=== PATIENT | female | born 1965 | race Caucasian/White ===

== ENCOUNTER 2018-02-27 14:54 | Inpatient (IN) | payer MEDICARE, MEDICAID ==
[2018-02-27 15:50] LABS: URINE SOURCE CLEAN C
[2018-02-27 15:58] LABS: % BASOPHILS 0.4 % (0.0-2.0); % EOSINOPHILS 3.4 % (0.0-5.0); % LYMPHOCYTES 34.2 % (20.0-50.0); EOSINOPHILE ABSOLUTE 0.2 Th/cmm (0.1-0.4); HEMATOCRIT 38.7 % (41.0-60); HEMOGLOBIN 13.3 gm/dL (12-16); LYMPHOCYTE ABSOLUTE 1.7 Th/cmm (1.5-3.0); MEAN CELL VOLUME 90.9 fl (81-100); MEAN CORPUSCULAR HEMOGLOBIN 31.2 pg (27.0-31.0); MEAN CORPUSCULAR HGB CONC 34.4 pg (28.0-36.0); MEAN PLATELET VOLUME 8.4 fl; MONOCYTE ABSOLUTE 0.4 Th/cmm (0.3-1.0); NEUTROPHILE ABSOLUTE 2.8 Th/cmm (1.8-8.0); PLATELET COUNT 116 Th/cmm (150-400); RED BLOOD COUNT 4.26 Mil/cmm (3.80-5.10); RED CELL DISTRIBUTION WIDTH 13.5 % (11.5-20.0); URINE BILIRUBIN NEGATIVE (NEGATIVE); URINE BLOOD TRACE (NEGATIVE); URINE GLUCOSE (UA) NEGATIVE (NEGATIVE); URINE KETONE NEGATIVE (NEGATIVE); URINE LEUKOCYTE ESTERASE NEGATIVE (NEGATIVE); URINE MICROSCOPIC INDICATED? YES; URINE NITRATE NEGATIVE (NEGATIVE); URINE PH 7.5 (4.6 - 8.0); URINE PROTEIN NEGATIVE (NEGATIVE); URINE UROBILINOGEN 0.2 E.U./dL (0.2 - 1.0); WHITE BLOOD COUNT 5.1 Th/cmm (4.8-10.8)
[2018-02-27 15:59] LABS: URINE CLARITY CLEAR (CLEAR); URINE COLOR YELLOW
[2018-02-27 16:06] LABS: URINE BACTERIA FEW /hpf (NONE SEEN); URINE EPITHELIAL CELLS MODERATE /lpf (FEW); URINE WBC 0-2 /hpf (0-5)
[2018-02-27 16:14] LABS: AMPHETAMINE URINE NEGATIVE (NEGATIVE); BARBITURATES URINE NEGATIVE (NEGATIVE); BENZODIAZEPINES QUAL URINE NEGATIVE (NEGATIVE); CANNABINOID THC NEGATIVE (NEGATIVE); COCAINE METABOLITE QUAL URINE NEGATIVE (NEGATIVE); METHADONE URINE NEGATIVE (NEGATIVE); METHAMPHETAMINES QUAL URINE NEGATIVE (NEGATIVE); OPIATES (MORPHINE) QUAL. URINE NEGATIVE (NEGATIVE); PHENCYCLIDINE (PCP) URINE NEGATIVE (NEGATIVE); TRICYCLICS (TCA) QUAL. URINE NEGATIVE (NEGATIVE)
[2018-02-27 16:16] LABS: ALB/GLOB RATIO 1.9 (1.0-1.8); ALBUMIN 3.8 gm/dL (3.7-5.3); ALKALINE PHOSPHATASE 37 U/L (34-104); ANION GAP 13.7 (7.0-16.0); BILIRUBIN,TOTAL 0.3 mg/dL (0.3-1.0); BUN - UREA NITROGEN 15 mg/dL (7-25); CALCIUM SERUM 8.9 mg/dL (8.6-10.3); CARBON DIOXIDE 26.8 mEq/L (21.0-31.0); CHLORIDE 102 mEq/L (98-107); CREATININE - SERUM 0.7 mg/dL (0.6-1.2); GFR AFRICAN-AMERICAN > 60.0 ml/min (>90); GFR NON AFRICAN-AMERICAN > 60.0 ml/min; GLUCOSE 106 mg/dL (70-105); MAGNESIUM 1.9 mg/dL (1.9-2.7); POTASSIUM SERUM 4.5 mEq/L (3.5-5.1); SGOT 24 U/L (13-39); SGPT/ALT 16 U/L (7-52); SODIUM SERUM 138 mEq/L (136-145); TOTAL PROTEIN,SERUM 5.8 gm/dL (6.0-8.3)
--- NOTE | 2018-02-27 17:25 | ED Physician Chart ---
ED Chief Complaint/HPI - Patient Information Date Seen:: 02/27/18 Time Seen:: 15:55 Chief Complaint:: dysuria, cp, L knee pain, lightheadedness History of Present Illness:: dysuria, cp, L knee pain, lightheadedness admits to dysuria wants to be checked if she is (still has her period and says that she is sexually active) had chest pain thsi a.m. left knee pain had lightheadedness Allergies:: Allergies Allergy/AdvReac Type Severity Reaction Status Date / Time No Known Allergies Allergy Verified 02/27/18 15:46 Vitals:: Vital Signs - 8 hr 02/27/18 15:55 Temp 98.7 F HR 86 RR 18 BP 103/59 O2 Sat % 95 Historian:: Patient, Medical Records Review:: Nurse's Note Reviewed, Transfer documents Reviewed ED Review of Systems - Review of Systems General/Constitutional: No fever, No chills, No weight loss, No weakness, No diaphoresis, No edema, No loss of appetite Skin: No skin lesions, No rash, No bruising Head: No headache, No light-headedness Eyes: No loss of vision, No pain, No diplopia ENT: No earache, No nasal drainage, No sore throat, No tinnitus Neck: No neck pain, No swelling, No thyromegaly, No stiffness, No mass noted Cardio Vascular: Chest pain Pulmonary: No SOB, No cough, No sputum, No wheezing GI: No nausea, No vomiting, No diarrhea, No pain, No melena, No hematochezia, No constipation, No hematemesis G/U: Dysuria Musculoskeletal: Bone or joint pain Endocrine: No polyuria, No polydipsia Psychiatric: No prior psych history, No depression, No anxiety, No suicidal ideation Hematopoietic: No bruising, No lymphadenopathy Allergic/Immuno: No urticaria, No angioedema Neurological: Other (lightheadedness) ED Past Medical History - Past Medical History Obtainable: Yes Past Medical History: HTN, Asthma/COPD Psychiatricy History: Depression, Bipolar Family Medical History - Family Member Mother History Unknown: Yes ED Physical Exam - Physical Examination General/Constitutional: Awake, Well-developed, well-nourished, Alert, No distress, GCS 15, Non-toxic appearing, Ambulatory Head: Atraumatic Eyes: Lids, conjuctiva normal, PERRL, EOMI Skin: Nl inspection, No rash, No skin lesions, No ecchymosis, Well hydrated, No lymphadenopathy ENMT: External ears, nose nl Neck: Nontender, Full ROM w/o pain, No nuchal rigidity, No stridor Respiratory: Nl effort/Exclusion, Clear to Auscultation, No Wheeze/Rhonchi/Rales Cardio Vascular: RRR, No murmur, gallop, rubs, NL S1 S2 GI: No tenderness/rebounding/guarding, No organomegaly, No hernia, Normal BS's, Nondistended, No mass/bruits, No McBurney tenderness : No CVA tenderness Extremities: Full ROM, normal strength in all extremities, No edema, Normal digits & nails Other Extremities comments:: Left knee pain to palpation, NV intact. Neuro/Psych: Alert/oriented, Normal sensory exam, Normal motor strength, Judgement/insight normal, Mood normal, Normal gait, No focal deficits Other Neuro/Psych comments:: marked tremor, especially of her hands. Misc: Normal back, No paraspinal tenderness ED Labs/Radiology/EKG Results - Lab Results Results: Laboratory Tests 02/27/18 02/27/18 02/27/18 15:32 15:32 15:32 WBC 5.1 RBC 4.26 Hgb 13.3 Hct 38.7 L MCV 90.9 MCH 31.2 H MCHC Differential 34.4 RDW 13.5 Plt Count 116 L MPV 8.4 Neutrophils % 54.0 Lymphocytes % 34.2 Monocytes % 8.0 Eosinophils % 3.4 Basophils % 0.4 Sodium 138 Potassium 4.5 Chloride 102 Carbon Dioxide 26.8 Anion Gap 13.7 BUN 15 Creatinine 0.7 Est GFR ( Amer) > 60.0 Est GFR (Non-Af Amer) > 60.0 BUN/Creatinine Ratio 21.4 Glucose 106 H Calcium 8.9 Phosphorus 3.0 Magnesium 1.9 Total Bilirubin 0.3 AST 24 ALT 16 Alkaline Phosphatase 37 Troponin I Total Protein 5.8 L Albumin 3.8 Globulin 2.0 Albumin/Globulin Ratio 1.9 H TSH Urine Source CLEAN C Urine Color YELLOW Urine Clarity CLEAR Urine pH 7.5 Ur Specific [place] 1.015 Urine Protein NEGATIVE Urine Glucose (UA) NEGATIVE Urine Ketones NEGATIVE Urine Blood TRACE Urine Nitrate NEGATIVE Urine Bilirubin NEGATIVE Urine Urobilinogen 0.2 Ur Leukocyte Esterase NEGATIVE Urine RBC 2-5 Urine WBC 0-2 Ur Epithelial Cells MODERATE Urine Bacteria FEW Urine Test POC Ur Test Urine Opiates Screen Urine Methadone Screen Ur Barbiturates Screen Valproic Acid Ur Tricyclics Screen Ur Phencyclidine Scrn Amphetamines Screen U Methamphetamines Scrn U Benzodiazepines Scrn U Cocaine Metab Screen U Cannabinoids Screen 02/27/18 02/27/18 02/27/18 15:32 15:32 15:32 WBC RBC Hgb Hct MCV MCH MCHC Differential RDW Plt Count MPV Neutrophils % Lymphocytes % Monocytes % Eosinophils % Basophils % Sodium Potassium Chloride Carbon Dioxide Anion Gap BUN Creatinine Est GFR ( Amer) Est GFR (Non-Af Amer) BUN/Creatinine Ratio Glucose Calcium Phosphorus Magnesium Total Bilirubin AST ALT Alkaline Phosphatase Troponin I 0.01 Total Protein Albumin Globulin Albumin/Globulin Ratio TSH 5.42 Urine Source Urine Color Urine Clarity Urine pH Ur Specific [place] Urine Protein Urine Glucose (UA) Urine Ketones Urine Blood Urine Nitrate Urine Bilirubin Urine Urobilinogen Ur Leukocyte Esterase Urine RBC Urine WBC Ur Epithelial Cells Urine Bacteria Urine Test NEGATIVE POC Ur Test Urine Opiates Screen Urine Methadone Screen Ur Barbiturates Screen Valproic Acid Ur Tricyclics Screen Ur Phencyclidine Scrn Amphetamines Screen U Methamphetamines Scrn U Benzodiazepines Scrn U Cocaine Metab Screen U Cannabinoids Screen 02/27/18 02/27/18 02/27/18 15:32 15:32 15:41 WBC RBC Hgb Hct MCV MCH MCHC Differential RDW Plt Count MPV Neutrophils % Lymphocytes % Monocytes % Eosinophils % Basophils % Sodium Potassium Chloride Carbon Dioxide Anion Gap BUN Creatinine Est GFR ( Amer) Est GFR (Non-Af Amer) BUN/Creatinine Ratio Glucose Calcium Phosphorus Magnesium Total Bilirubin AST ALT Alkaline Phosphatase Troponin I Total Protein Albumin Globulin Albumin/Globulin Ratio TSH Urine Source Urine Color Urine Clarity Urine pH Ur Specific [place] Urine Protein Urine Glucose (UA) Urine Ketones Urine Blood Urine Nitrate Urine Bilirubin Urine Urobilinogen Ur Leukocyte Esterase Urine RBC Urine WBC Ur Epithelial Cells Urine Bacteria Urine Test POC Ur Test Negative Urine Opiates Screen NEGATIVE Urine Methadone Screen NEGATIVE Ur Barbiturates Screen NEGATIVE Valproic Acid 96.0 Ur Tricyclics Screen NEGATIVE Ur Phencyclidine Scrn NEGATIVE Amphetamines Screen NEGATIVE U Methamphetamines Scrn NEGATIVE U Benzodiazepines Scrn NEGATIVE U Cocaine Metab Screen NEGATIVE U Cannabinoids Screen NEGATIVE ED Assessment - Assessment General Assessment: EKG FROM 15:43:09 P.M. reveals normal sinus rhythm with a flipped t wave in III. CT scan read as negative. Movement artifact present. Spoke with Dr. Simeon who will admit patient for IV hydration. Patient's orthostatics reveal an 18 point decreased in blood pressure from lying to sitting. This dehydration may have been a cause her her lightheadedness this morning. ED Septic Shock - . Is Septic Shock (SBP<90, OR Lactate>4 mmol\L) present?: No - <6hrs of presentation: Vital Signs: Vital Signs - 8 hr 02/27/ 15:55 Temp 98.7 F HR 86 RR 18 BP 103/59 O2 Sat % 95 ED Reassessment (Disposition) - Reassessment Reassessment Condition:: Unchanged - Diagnosis Diagnosis:: Dehydration Orthostasis with an 18 point systolic blood pressure drop Lightheadedness this morning Chest pain this morning Left knee pain Dysuria - Patient Disposition Discharge/Transfer:: Acute Care w/in this hosp Admitted to:: Telemetry Condition at Disposition:: Stable, Unchanged
[2018-02-27] MEDS ORDERED: Lactated Ringer 1,000 ML IV ONE (18:00)
[2018-02-27 23:03] VITALS: BP 144/85
[2018-02-28] MEDS: D5-0.45NS 1,000 ML IV SCH ×3 (01:27→13:03)
[2018-02-28 05:39] LABS: % BASOPHILS 0.3 % (0.0-2.0); % LYMPHOCYTES 40.5 % (20.0-50.0); % NEUTROPHILS 45.2 % (40.0-80.0); EOSINOPHILE ABSOLUTE 0.2 Th/cmm (0.1-0.4); HEMATOCRIT 36.1 % (41.0-60); HEMOGLOBIN 12.5 gm/dL (12-16); LYMPHOCYTE ABSOLUTE 1.7 Th/cmm (1.5-3.0); MEAN CELL VOLUME 90.1 fl (81-100); MEAN CORPUSCULAR HEMOGLOBIN 31.3 pg (27.0-31.0); MEAN CORPUSCULAR HGB CONC 34.8 pg (28.0-36.0); MEAN PLATELET VOLUME 7.9 fl; MONOCYTE ABSOLUTE 0.4 Th/cmm (0.3-1.0); NEUTROPHILE ABSOLUTE 1.8 Th/cmm (1.8-8.0); PLATELET COUNT 102 Th/cmm (150-400); RED CELL DISTRIBUTION WIDTH 13.8 % (11.5-20.0); WHITE BLOOD COUNT 4.1 Th/cmm (4.8-10.8)
[2018-02-28 05:52] LABS: ALB/GLOB RATIO 1.8 (1.0-1.8); ALBUMIN 3.3 gm/dL (3.7-5.3); ALKALINE PHOSPHATASE 50 U/L (34-104); ANION GAP 10.5 (7.0-16.0); BILIRUBIN,TOTAL 0.2 mg/dL (0.3-1.0); BUN - UREA NITROGEN 16 mg/dL (7-25); CALCIUM SERUM 8.7 mg/dL (8.6-10.3); CARBON DIOXIDE 28.4 mEq/L (21.0-31.0); CHLORIDE 105 mEq/L (98-107); CREATININE - SERUM 0.7 mg/dL (0.6-1.2); GFR AFRICAN-AMERICAN > 60.0 ml/min (>90); GFR NON AFRICAN-AMERICAN > 60.0 ml/min; GLUCOSE 141 mg/dL (70-105); POTASSIUM SERUM 3.9 mEq/L (3.5-5.1); SGOT 15 U/L (13-39); SGPT/ALT 18 U/L (7-52); SODIUM SERUM 140 mEq/L (136-145); TOTAL PROTEIN,SERUM 5.1 gm/dL (6.0-8.3)
[2018-02-28] MEDS ORDERED: Ipratropium Neb 0.5 mg/2.5 mL UD HHN PRN (06:59)
[2018-02-28] MEDS ORDERED: Albuterol Nebulizer 2.5mg/3mL HHN PRN (06:59)
--- NOTE | 2018-02-28 08:53 | Diagnostic Imaging Report ---
CHEST X-RAY: AP view INDICATION: Rhonchi COMPARISON: None FINDINGS: There is no focal consolidation or pleural effusions The heart is normal in size. There is rightward convexity of the thoracic spine. Degenerative changes of the right shoulder are noted. IMPRESSION: No focal airspace consolidation identified.
--- NOTE | 2018-02-28 09:02 | Diagnostic Imaging Report ---
Left knee 3 views Indication: Trauma Comparison: none Findings: Mild degenerative changes are noted with mild narrowing of the medial knee compartment. No evidence of acute fracture. Trace joint effusion is noted. No focal soft tissue swelling. Impression: No evidence of an acute fracture. Mild degenerative changes and trace joint effusion. In the setting of trauma, if clinical symptoms persist and there is continued concern for an occult fracture, follow up exams in 5-7 days is suggested.
[2018-02-28] MEDS: Benztropine 1 MG TAB PO SCH ×2 (09:11→16:46)
--- NOTE | 2018-02-28 09:27 | Diagnostic Imaging Report ---
Head CT without intravenous contrast Indication: Lightheadedness Comparison: None Technique: Axial images were obtained from the vertex to the skull base without IV contrast. Coronal reconstructions were made. Total DLP: 691, [id number] FINDINGS: Images of the brain obtained without contrast demonstrate no acute hemorrhage. No mass lesions identified. The ventricles and basal cisterns are patent. The marcos-white matter differentiation is preserved. There is no mass effect or midline shift. No skull fractures identified. No soft tissue swelling. The paranasal sinuses are clear. There is focal osseous prominence of the right inner calvarium measuring 8 mm. IMPRESSION: No acute intracranial abnormality.
[2018-02-28 14:40] LABS: CHOLESTEROL 157 mg/dL (<200); HDL -HIGH DENSITY LIPOPROTEIN 37 mg/dL (23-92); TRIGLYCERIDES 244 mg/dL (<150)
--- NOTE | 2018-02-28 14:45 | History & Physical ---
ADMIT DATE: 02/28/2018 CHIEF COMPLAINT: Dysuria and lightheadedness. HISTORY OF PRESENT ILLNESS: This is a 52-year-old female who is a [facility] resident who has a 1-day history of dysuria as well as lightheadedness. According to the patient yesterday, she started to feel lightheaded and she was having painful urination. She denied any hematuria. She denied any fevers as well. The patient states that she was really dizzy yesterday and she felt like she was about to faint. For this reason, she was brought here to [facility]. PAST MEDICAL HISTORY: Hypertension, asthma, COPD, Parkinson's, depression, and bipolar. PAST SURGICAL HISTORY: Unknown. ALLERGIES: No known allergies. FAMILY HISTORY: Noncontributory. SOCIAL HISTORY: The patient is a smoker and lives in a [facility]. REVIEW OF SYSTEMS: GENERAL: The patient complains of weakness. CARDIOVASCULAR: Denies chest pain. RESPIRATORY: Denies shortness of breath. GASTROINTESTINAL: Denies nausea, vomiting, abdominal pain. GENITOURINARY: Complains of dysuria. All other systems are reviewed and are negative. PHYSICAL EXAMINATION: GENERAL: Obese female, awake, alert, in no apparent distress. VITAL SIGNS: Temperature 97.9, height 67, blood pressure 124/65, respirations 18, O2 95%. HEENT: Head; normocephalic, atraumatic. NECK: Supple. No mass. LUNGS: Clear bilaterally. HEART: Regular rhythm. ABDOMEN: Soft, nontender. LABORATORY DATA: WBC 4.1, H and H 12.5 and 36.1, platelet of 102. Sodium 140, potassium 3.9, chloride 105, BUN 16, creatinine 0.7. DIAGNOSTIC DATA: The patient had a CT of the head done, impression is no acute intracranial abnormality. The patient also had an x-ray of the knee, no evidence of acute fracture. The patient also had a chest x-ray done. Impression is no focal airspace consolidation identified. ASSESSMENT: Dysuria, possible urinary tract infection, acute dehydration, near syncope, Parkinson's, nicotine abuse, chronic obstructive pulmonary disease, hypertension, depression, bipolar. PLAN: We will get a Neurology consultation as well as Cardiology. We will also get a carotid ultrasound done. We will check for IV fluids for hydration. We will continue to follow this patient. [facility]# [id number]
[2018-02-28] MEDS ORDERED: Divalproex DR 500 MG, Divalproex DR 250 MG PO ONE (17:00)
--- NOTE | 2018-02-28 19:17 | Consultation ---
DATE OF CONSULTATION: 02/28/2018 PSYCHIATRIC CONSULTATION PHYSICIAN REQUESTING CONSULTATION: Dr. Simeon. REASON FOR CONSULTATION: History of bipolar disorder. HISTORY OF PRESENT ILLNESS: This patient is a 52-year-old woman, resident of [facility]. Information obtained by directly interviewing the patient as well as reviewing the admission papers. The patient is reported to have been diagnosed to have bipolar disorder since age 22 and has been on several different medications. At the time of the evaluation, the patient has been vigorously shaking her hands and is stating that it might have been one of the side effects. The patient is also wondering whether it is Parkinson disease. The patient is scheduled to have a neurological evaluation. The patient is stating that she is not able to sleep and because of the medication, she has gained lot of weight. Review of the chart indicated that the patient has been on Depakote 750 mg twice a day and Cogentin 2 mg twice a day. Even with all the medications, the patient is complaining that she has been having a lot of dry mouth and blurred vision and the patient is stating that she could not deal with this any longer. Sleep is noted to be poor. Appetite is noted to be fair. The patient has auditory hallucinations. No delusions are noted. The patient's speech is noted to be slightly pressured. The patient is noted to be paranoid. The patient is not presenting with any threats to harm self or others, but the patient is stating that she has been having difficult time in dealing with the tremor at this time. ASSESSMENT: The patient is having acute mood swings. DIAGNOSIS AT THE TIME OF THE DICTATION: Bipolar disorder, mixed. PLAN: To continue the patient with supportive therapy. Encouraged the patient to verbalize the concerns. The patient's Depakote is going to be decreased to 500 mg twice a day, Klonopin 0.5 mg is going to be added to decrease the anxiety. The patient is going to be placed on 5 mg of the Ambien to help her with the insomnia. The patient is going to be followed up with supportive therapy. Plan is to continue the Depakote and followup. Thank you Dr. Simeon for allowing me to participate in the care of the patient. JOB# [id number]
[2018-02-28] MEDS ORDERED: Non-Formulary Item 1 EA (Melatonin [Melatonin] 5 MG) PO SCH (21:00)
[2018-02-28] MEDS: Budesonide 0.5 Mg/2 mL Ud HHN SCH (22:42)
--- NOTE | 2018-03-01 01:34 | Consultation ---
DATE OF CONSULTATION: 02/28/2018 HISTORY AND PHYSICAL CHIEF COMPLAINT: Dysuria, chest pain, left knee pain, lightheadedness, and dizziness. HISTORY OF PRESENT ILLNESS: The patient is a 52-year-old female with a past medical history of hypertension, asthma, COPD, depression, and bipolar disorder, presented to the ER for dysuria with some chest pain and left knee pain. The patient complained of lightheadedness, which has resolved now. On initial evaluation, her temperature is 98.7 degrees Fahrenheit, pulse 86, respiration 18, and blood pressure 103/59. Lab work showed WBC of 5100, hemoglobin 13.3, platelets 116,000 and creatinine 0.7. Urinalysis, clear urine with negative nitrite, negative bilirubin, negative leukoesterase, wbc's 0-2, and few bacteria. Orthostatic vitals were taken and this showed orthostatic hypertension. The patient was thought to have dehydration, so the patient was started on IV fluid at 125 mL per hour and admitted to the med/surg unit. CT scan of the head was performed, which shows no acute abnormality. X-ray of the left knee was also performed, which showed DJD with a trace joint effusion. Chest x-ray showed no active disease. PAST MEDICAL HISTORY: Hypertension, asthma, COPD, depression, and bipolar disorder. ALLERGIES: NKDA. MEDICATIONS: As per medication reconciliation sheet. Medications include Tylenol 650 mg p.o. q. 6 hourly p.r.n., albuterol and Atrovent nebulizers, Cogentin 2 mg p.o. b.i.d., Pulmicort 0.5 mg ____ b.i.d., Sinemet 25/100 mg 1 tab p.o. b.i.d., carbidopa and levodopa 1 tab p.o., Depakote 750 mg p.o. b.i.d., Colace 100 mg p.o. b.i.d., and melatonin 5 mg p.o. daily at nighttime. SOCIAL HISTORY: The patient lives at ____. No history of smoking, alcohol, or drug use. REVIEW OF SYSTEMS: GENERAL: The patient denies any fever or chills. HEENT: The patient denies any diplopia, photophobia, or sore throat. RESPIRATORY: Denies any cough or shortness of breath. CARDIOVASCULAR: The patient denies any chest pain or palpitation. GASTROINTESTINAL: The patient denies any nausea, vomiting, diarrhea, or constipation. GENITOURINARY: The patient had no hematuria. The patient complained of dysuria which has resolved. MUSCULOSKELETAL: The patient complains of left knee pain. CENTRAL NERVOUS SYSTEM: The patient has no headache. The patient had dizziness, which is resolved. The patient had no focal weakness. No seizures. PHYSICAL EXAMINATION: VITAL SIGNS: Current vial sign shows temperature is 97.9 degrees Fahrenheit, pulse 84, respiration is 18, blood pressure 124/64, and oxygen saturation is 95%. GENERAL: The patient is comfortable lying in the bed in acute distress. HEENT: Head is normocephalic, atraumatic. Oral cavity moist, pink tongue. Eyes: No pallor, no icterus. Pupils PERRLA, EOMI. NECK: Supple, no JVD, no bruit. Trachea midline. CHEST: Bilateral breath sounds. No crackles, no wheezing. CARDIOVASCULAR: S1 and S2 within normal limits. Regular rhythm. No murmur, no gallop. ABDOMEN: Soft, nontender, nondistended. Bowel sounds present. EXTREMITIES: No cyanosis, no clubbing, no edema. NEUROLOGIC: Alert, awake, and oriented x 3. No focal deficit. LABORATORY DATA: Current lab shows WBC count is ____, hemoglobin 12.5, hematocrit 36.1, platelets are 102,000, neutrophil is 45.2%. Sodium 140, potassium 3.9, chloride 105, bicarbonate is 28.4, BUN 16, creatinine 0.7, and glucose is 141. IMPRESSION: 1. Dizziness with orthostatic hypotension likely dehydration. 2. Thrombocytopenia. 3. Hypertension. 4. Asthma, chronic obstructive pulmonary disease. 5. Depression. 6. Bipolar disorder. RECOMMENDATIONS: I will decrease IV fluid to 60 mL per hour. Check orthostatic vital signs. Echocardiogram. Consult Dr. Beau Saenz, Dr. Garcia, and Dr. Torres. We will consider discharge planning in the next 2-3 days to SNF, if cleared by consultants. JOB# [id number]
[2018-03-01] MEDS: D5-0.45NS 1,000 ML IV SCH (02:19)
[2018-03-01] MEDS: Budesonide 0.5 Mg/2 mL Ud HHN SCH ×2 (07:44→18:38)
--- NOTE | 2018-03-01 08:38 | Diagnostic Imaging Report ---
Carotid ultrasound HISTORY: Syncope COMPARISON: None Technique: Longitudinal and transverse sonographic sector images of the carotid arteries were obtained with doppler analysis. FINDINGS: Exam is limited due to patient's medical condition. Exam of the right side demonstrates mild generalized atherosclerotic vascular disease. The velocity and velocity ratios are within normal limits. Antegrade vertebral artery flow is demonstrated. Exam of the left side demonstrates mild generalized atherosclerotic vascular disease. The velocity and velocity ratios are within normal limits. The left vertebral artery was not visualized as patient had difficulty cooperating for the exam. IMPRESSION: Mild generalized atherosclerotic vascular disease. No evidence of hemodynamically significant stenosis. The left vertebral artery was not visualized as patient had difficulty cooperating for the exam.
[2018-03-01] MEDS: Benztropine 1 MG TAB PO SCH ×2 (09:02→17:32)
--- NOTE | 2018-03-01 12:26 | Infectious Disease Prog Note ---
Infectious Disease Subjective - Review of Systems Service Date: 03/01/18 Subjective: Doing well, no fever. no chest pain, no dizziness. Infectious Disease Objective - Results Result Diagrams: 02/28/18 04:45 02/28/18 04:45 Recent Labs: Laboratory Last Values WBC 4.1 Th/cmm (4.8-10.8) L 02/28/18 04:45 RBC 4.00 Mil/cmm (3.80-5.10) 02/28/18 04:45 Hgb 12.5 gm/dL (12-16) 02/28/18 04:45 Hct 36.1 % (41.0-60) L 02/28/18 04:45 MCV 90.1 fl (81-100) 02/28/18 04:45 MCH 31.3 pg (27.0-31.0) H 02/28/18 04:45 MCHC Differential 34.8 pg (28.0-36.0) 02/28/18 04:45 RDW 13.8 % (11.5-20.0) 02/28/18 04:45 Plt Count 102 Th/cmm (150-400) L 02/28/18 04:45 MPV 7.9 fl 02/28/18 04:45 Neutrophils % 45.2 % (40.0-80.0) 02/28/18 04:45 Lymphocytes % 40.5 % (20.0-50.0) 02/28/18 04:45 Monocytes % 9.0 % (2.0-10.0) 02/28/18 04:45 Eosinophils % 5.0 % (0.0-5.0) 02/28/18 04:45 Basophils % 0.3 % (0.0-2.0) 02/28/18 04:45 Sodium 140 mEq/L (136-145) 02/28/18 04:45 Potassium 3.9 mEq/L (3.5-5.1) 02/28/18 04:45 Chloride 105 mEq/L (98-107) 02/28/18 04:45 Carbon Dioxide 28.4 mEq/L (21.0-31.0) 02/28/18 04:45 Anion Gap 10.5 (7.0-16.0) 02/28/18 04:45 BUN 16 mg/dL (7-25) 02/28/18 04:45 Creatinine 0.7 mg/dL (0.6-1.2) 02/28/18 04:45 Est GFR ( Amer) > 60.0 ml/min (>90) 02/28/18 04:45 Est GFR (Non-Af Amer) > 60.0 ml/min 02/28/18 04:45 BUN/Creatinine Ratio 22.9 02/28/18 04:45 Glucose 141 mg/dL (70-105) H 02/28/18 04:45 POC Glucose 123 MG/DL (70 - 105) H 02/27/18 22:39 Calcium 8.7 mg/dL (8.6-10.3) 02/28/18 04:45 Phosphorus 3.0 mg/dL (2.5-5.0) 02/27/18 15:32 Magnesium 1.9 mg/dL (1.9-2.7) 02/27/18 15:32 Total Bilirubin 0.2 mg/dL (0.3-1.0) L 02/28/18 04:45 AST 15 U/L (13-39) 02/28/18 04:45 ALT 18 U/L (7-52) 02/28/18 04:45 Alkaline Phosphatase 50 U/L (34-104) 02/28/18 04:45 Troponin I 0.01 ng/mL (0.01-0.05) 02/27/18 15:32 Total Protein 5.1 gm/dL (6.0-8.3) L 02/28/18 04:45 Albumin 3.3 gm/dL (3.7-5.3) L 02/28/18 04:45 Globulin 1.8 gm/dL 02/28/18 04:45 Albumin/Globulin Ratio 1.8 (1.0-1.8) 02/28/18 04:45 Triglycerides 244 mg/dL (<150) H 02/28/18 04:45 Cholesterol 157 mg/dL (<200) 02/28/18 04:45 LDL Cholesterol Direct 101 mg/dL (75-193) 02/28/18 04:45 HDL Cholesterol 37 mg/dL (23-92) 02/28/18 04:45 TSH 5.42 uIU/ml (0.34-5.60) 02/27/18 15:32 Urine Source CLEAN C 02/27/18 15:32 Urine Color YELLOW 02/27/18 15:32 Urine Clarity CLEAR (CLEAR) 02/27/18 15:32 Urine pH 7.5 (4.6 - 8.0) 02/27/18 15:32 Ur Specific [place] 1.015 (1.005-1.030) 02/27/18 15:32 Urine Protein NEGATIVE mg/dL (NEGATIVE) 02/27/18 15:32 Urine Glucose (UA) NEGATIVE mg/dL (NEGATIVE) 02/27/18 15:32 Urine Ketones NEGATIVE mg/dL (NEGATIVE) 02/27/18 15:32 Urine Blood TRACE (NEGATIVE) 02/27/18 15:32 Urine Nitrate NEGATIVE (NEGATIVE) 02/27/18 15:32 Urine Bilirubin NEGATIVE (NEGATIVE) 02/27/18 15:32 Urine Urobilinogen 0.2 E.U./dL (0.2 - 1.0) 02/27/18 15:32 Ur Leukocyte Esterase NEGATIVE (NEGATIVE) 02/27/18 15:32 Urine RBC 2-5 /hpf (0-5) 02/27/18 15:32 Urine WBC 0-2 /hpf (0-5) 02/27/18 15:32 Ur Epithelial Cells MODERATE /lpf (FEW) 02/27/18 15:32 Urine Bacteria FEW /hpf (NONE SEEN) 02/27/18 15:32 Urine Test NEGATIVE 02/27/18 15:32 POC Ur Test Negative 02/27/18 15:41 Urine Opiates Screen NEGATIVE (NEGATIVE) 02/27/18 15:32 Urine Methadone Screen NEGATIVE (NEGATIVE) 02/27/18 15:32 Ur Barbiturates Screen NEGATIVE (NEGATIVE) 02/27/18 15:32 Valproic Acid 96.0 ug/mL (50.0-100.0) 02/27/18 15:32 Ur Tricyclics Screen NEGATIVE (NEGATIVE) 02/27/18 15:32 Ur Phencyclidine Scrn NEGATIVE (NEGATIVE) 02/27/18 15:32 Amphetamines Screen NEGATIVE (NEGATIVE) 02/27/18 15:32 U Methamphetamines Scrn NEGATIVE (NEGATIVE) 02/27/18 15:32 U Benzodiazepines Scrn NEGATIVE (NEGATIVE) 02/27/18 15:32 U Cocaine Metab Screen NEGATIVE (NEGATIVE) 02/27/18 15:32 U Cannabinoids Screen NEGATIVE (NEGATIVE) 02/27/18 15:32 - Physical Exam Vitals and I&O: Vital Signs Temp 98.1 F 03/01/18 11:00 Pulse 79 03/01/18 11:00 Resp 18 03/01/18 11:00 BP 113/55 03/01/18 11:00 Pulse Ox 98 03/01/18 11:00 Intake & Output 02/28/18 03/01/18 03/01/18 18:59 06:59 18:59 Intake Total 7141.766 1798 Balance 0625.647 1633 Weight (lbs) 87.543 kg 100.244 kg Intake: Intake, IV Amount 034.206 3399 D5-0.45NS 1,000 ml @ 125 979.167 mls/hr IV .Q8H [facility] Rx#: [id number] D5-0.45NS 1,000 ml @ 60 1000 mls/hr IV .[id number] [facility] Rx #:[id number] Oral 800 500 Other: # Voids 9 4 # Bowel Movements 0 Stool Characteristics Formed Formed Formed Weight Source Bedscale Bedsuc health Active Medications: Current Medications Acetaminophen (Tylenol) 650 mg PO Q6H PRN PRN Reason: Pain (Moderate) Stop: 04/29/18 01:08 Last Admin: 03/01/18 11:52 Dose: 650 mg Albuterol Sulfate (Albuterol 2.5mg/3ml Neb Ud) 2.5 mg HHN Q4H PRN PRN Reason: Shortness of Breath or Wheeze Stop: 04/29/18 06:58 Benztropine Mesylate (Cogentin) 1 mg PO BID [facility] Stop: 04/30/18 08:59 Last Admin: 03/01/18 09:02 Dose: 1 mg Budesonide (Pulmicort) 0.5 mg HHN BIDRT [facility] Stop: 04/29/18 18:59 Last Admin: 03/01/18 07:44 Dose: 0.5 mg Carbidopa/Levodopa (Sinemet 25mg-100 Mg) 1 tab PO BID [facility] Stop: 04/29/18 08:59 Last Admin: 03/01/18 09:02 Dose: 1 tab Divalproex Sodium (Depakote Dr) 500 mg PO BID [facility]; Protocol Stop: 04/30/18 08:59 Last Admin: 03/01/18 09:03 Dose: 500 mg Docusate Sodium (Colace) 100 mg PO BID [facility] Stop: 04/29/18 08:59 Last Admin: 03/01/18 09:02 Dose: 100 mg Dextrose/Sodium Chloride (D5-0.45ns) 1,000 mls @ 60 mls/hr IV .[id number] [facility] Stop: 04/29/18 12:14 Last Admin: 03/01/18 02:19 Dose: 60 mls/hr Ipratropium [place] (Atrovent Neb 0.5mg/2.5ml) 0.5 mg HHN QID PRN PRN Reason: Shortness of Breath or Wheeze Propranolol HCl (Inderal) 10 mg PO BID [facility] Stop: 04/30/18 16:59 Simvastatin (Zocor) 20 mg PO HS [facility]; Protocol Stop: 04/29/18 20:59 Last Admin: 02/28/18 21:06 Dose: 20 mg Zolpidem Tartrate (Ambien) 5 mg PO HS PRN PRN Reason: Insomnia Stop: 04/29/18 18:54 General: no acute distress, well developed, well nourished HEENT: atraumatic, normocephalic, PERRLA Neck: supple, no thyromegaly, no lymphadenopathy Cardiovascular: S1S2, regular Lungs: no clear to auscultation bilaterally, no clear to percussion Abdomen: soft, bowel sounds, no tender, no distended, no mass Extremities: no cyanosis, no clubbing, no edema Neurological: awake, alert, oriented Skin: intact Infectious Disease Assmt/Plan - Assessment Assessment: 1. Dizziness resolved. 2. Bipolar disorder. 3. Asthma copd. 4. HTN. 5. Thrombocytopenia. - Plan Plan: DC plan. Nutritional Asmnt/Malnutr-PDOC - Dietary Evaluation Malnutrition Findings (Please click <Entered> for more info): Nutritional Asmnt/Malnutrition Start: 02/28/18 16: 08 Text: Status: Complete Freq: Protocol: Document 02/28/18 16:08 TAMMY (Rec: 02/28/18 16:17 TAMMY [email or web address]) Nutritional Asmnt/Malnutrition Patient General Information Nutritional Screening High Risk Diagnosis near syncope, dehydration Pertinent Medical Hx/Surgical Hx HTN, asthma, COPD, Parkinson's , depression, bipolar Subjective Information Pt finished 100% of lunch at time of visit. Pt requested for hot cocoa, diet coke, and full salads. Pt states her appetite's good and enjoys her meals. Pt states she recently lost 10# by limiting her carbohydrate intake and meals. Observed pt to be shaking her body/hands during nutrition assessment. Current Diet Order/ Nutrition Support regular Pertinent Medications D5-0.45ns, colace, zocor Pertinent Labs 02/28: glucose 141, Alb 3.3, triglycerides 244 02/27: glucose 106, Alb 3.8, POC 123 Nutritional Hx/Data Height 1.55 m Height (Calculated Centimeters) 154.9 Current Weight (lbs) 87.543 kg Weight (Calculated Kilograms) 87.5 Weight (Calculated Grams) 42852.3 [place] Body Weight 105 lb Body Mass Index (BMI) 36.4 Weight Status Obese GI Symptoms GI Symptoms None Last BM none noted Difficult in: None Usual diet at home Pt states she has been limiting her meals and carbohydrate intake Skin Integrity/Comment: anupama, mike 20 Estimated Nutritional Goals BEE in Kcals: Adj wt of IBW Calories/Kcals/Kg 25-30 (based on adj wt 57.7 kg ) Kcals Calculated 7690-5330 Protein: Adj wt of IBW Protein g/k.8-1 Protein Calculated 46-58 g Fluid: ml 6118-7801 (1 ml/kcal) Nutritional Problem 1. Problem Problem Altered nutrition related lab value Etiology hyperglycemia Signs/Symptoms: glucose 141 Malnutrition Alert Is there a minimum of two criteria No selected? Query Text:Check all the applicable criteria. A minimum of two criteria are recommended for diagnosis of either severe or non-severe malnutrition. Malnutrition Related to Morbid Obesity Malnutrition related to morbid obesity No Intervention/Recommendation Comments 1. Continue with regular diet as ordered 2. Consider starting CCHO diet if blood glucose continues to stay above normal limits 3. Monitor PO intake, wt, labs and skin integrity 4. F/U as moderate risk in 3-5 days, 03/03-03/05 Expected Outcomes/Goals Expected Outcomes/Goals 1. PO intake to meet at least 75% of all meals 2. Wt stability, skin to remain intact, nutrition related labs to approach normal limits reviewed by Guera Rebolledo RD
--- NOTE | 2018-03-01 12:49 | Infectious Disease Prog Note ---
Infectious Disease Subjective - Review of Systems Service Date: 03/01/18 Subjective: Doing well, no fever. no chest pain, c/o dizziness on and off. Hypotensive, with SBP dropping to 80s. Infectious Disease Objective - Results Result Diagrams: 02/28/18 04:45 02/28/18 04:45 Recent Labs: Laboratory Last Values WBC 4.1 Th/cmm (4.8-10.8) L 02/28/18 04:45 RBC 4.00 Mil/cmm (3.80-5.10) 02/28/18 04:45 Hgb 12.5 gm/dL (12-16) 02/28/18 04:45 Hct 36.1 % (41.0-60) L 02/28/18 04:45 MCV 90.1 fl (81-100) 02/28/18 04:45 MCH 31.3 pg (27.0-31.0) H 02/28/18 04:45 MCHC Differential 34.8 pg (28.0-36.0) 02/28/18 04:45 RDW 13.8 % (11.5-20.0) 02/28/18 04:45 Plt Count 102 Th/cmm (150-400) L 02/28/18 04:45 MPV 7.9 fl 02/28/18 04:45 Neutrophils % 45.2 % (40.0-80.0) 02/28/18 04:45 Lymphocytes % 40.5 % (20.0-50.0) 02/28/18 04:45 Monocytes % 9.0 % (2.0-10.0) 02/28/18 04:45 Eosinophils % 5.0 % (0.0-5.0) 02/28/18 04:45 Basophils % 0.3 % (0.0-2.0) 02/28/18 04:45 Sodium 140 mEq/L (136-145) 02/28/18 04:45 Potassium 3.9 mEq/L (3.5-5.1) 02/28/18 04:45 Chloride 105 mEq/L (98-107) 02/28/18 04:45 Carbon Dioxide 28.4 mEq/L (21.0-31.0) 02/28/18 04:45 Anion Gap 10.5 (7.0-16.0) 02/28/18 04:45 BUN 16 mg/dL (7-25) 02/28/18 04:45 Creatinine 0.7 mg/dL (0.6-1.2) 02/28/18 04:45 Est GFR ( Amer) > 60.0 ml/min (>90) 02/28/18 04:45 Est GFR (Non-Af Amer) > 60.0 ml/min 02/28/18 04:45 BUN/Creatinine Ratio 22.9 02/28/18 04:45 Glucose 141 mg/dL (70-105) H 02/28/18 04:45 POC Glucose 123 MG/DL (70 - 105) H 02/27/18 22:39 Calcium 8.7 mg/dL (8.6-10.3) 02/28/18 04:45 Phosphorus 3.0 mg/dL (2.5-5.0) 02/27/18 15:32 Magnesium 1.9 mg/dL (1.9-2.7) 02/27/18 15:32 Total Bilirubin 0.2 mg/dL (0.3-1.0) L 02/28/18 04:45 AST 15 U/L (13-39) 02/28/18 04:45 ALT 18 U/L (7-52) 02/28/18 04:45 Alkaline Phosphatase 50 U/L (34-104) 02/28/18 04:45 Troponin I 0.01 ng/mL (0.01-0.05) 02/27/18 15:32 Total Protein 5.1 gm/dL (6.0-8.3) L 02/28/18 04:45 Albumin 3.3 gm/dL (3.7-5.3) L 02/28/18 04:45 Globulin 1.8 gm/dL 02/28/18 04:45 Albumin/Globulin Ratio 1.8 (1.0-1.8) 02/28/18 04:45 Triglycerides 244 mg/dL (<150) H 02/28/18 04:45 Cholesterol 157 mg/dL (<200) 02/28/18 04:45 LDL Cholesterol Direct 101 mg/dL (75-193) 02/28/18 04:45 HDL Cholesterol 37 mg/dL (23-92) 02/28/18 04:45 TSH 5.42 uIU/ml (0.34-5.60) 02/27/18 15:32 Urine Source CLEAN C 02/27/18 15:32 Urine Color YELLOW 02/27/18 15:32 Urine Clarity CLEAR (CLEAR) 02/27/18 15:32 Urine pH 7.5 (4.6 - 8.0) 02/27/18 15:32 Ur Specific [place] 1.015 (1.005-1.030) 02/27/18 15:32 Urine Protein NEGATIVE mg/dL (NEGATIVE) 02/27/18 15:32 Urine Glucose (UA) NEGATIVE mg/dL (NEGATIVE) 02/27/18 15:32 Urine Ketones NEGATIVE mg/dL (NEGATIVE) 02/27/18 15:32 Urine Blood TRACE (NEGATIVE) 02/27/18 15:32 Urine Nitrate NEGATIVE (NEGATIVE) 02/27/18 15:32 Urine Bilirubin NEGATIVE (NEGATIVE) 02/27/18 15:32 Urine Urobilinogen 0.2 E.U./dL (0.2 - 1.0) 02/27/18 15:32 Ur Leukocyte Esterase NEGATIVE (NEGATIVE) 02/27/18 15:32 Urine RBC 2-5 /hpf (0-5) 02/27/18 15:32 Urine WBC 0-2 /hpf (0-5) 02/27/18 15:32 Ur Epithelial Cells MODERATE /lpf (FEW) 02/27/18 15:32 Urine Bacteria FEW /hpf (NONE SEEN) 02/27/18 15:32 Urine Test NEGATIVE 02/27/18 15:32 POC Ur Test Negative 02/27/18 15:41 Urine Opiates Screen NEGATIVE (NEGATIVE) 02/27/18 15:32 Urine Methadone Screen NEGATIVE (NEGATIVE) 02/27/18 15:32 Ur Barbiturates Screen NEGATIVE (NEGATIVE) 02/27/18 15:32 Valproic Acid 96.0 ug/mL (50.0-100.0) 02/27/18 15:32 Ur Tricyclics Screen NEGATIVE (NEGATIVE) 02/27/18 15:32 Ur Phencyclidine Scrn NEGATIVE (NEGATIVE) 02/27/18 15:32 Amphetamines Screen NEGATIVE (NEGATIVE) 02/27/18 15:32 U Methamphetamines Scrn NEGATIVE (NEGATIVE) 02/27/18 15:32 U Benzodiazepines Scrn NEGATIVE (NEGATIVE) 02/27/18 15:32 U Cocaine Metab Screen NEGATIVE (NEGATIVE) 02/27/18 15:32 U Cannabinoids Screen NEGATIVE (NEGATIVE) 02/27/18 15:32 - Physical Exam Vitals and I&O: Vital Signs Temp 98.1 F 03/01/18 11:00 Pulse 79 03/01/18 11:00 Resp 18 03/01/18 11:00 BP 113/55 03/01/18 11:00 Pulse Ox 98 03/01/18 11:00 Intake & Output 02/28/18 03/01/18 03/01/18 18:59 06:59 18:59 Intake Total 0591.626 5526 Balance 5124.851 9395 Weight (lbs) 87.543 kg 100.244 kg Intake: Intake, IV Amount 392.764 4182 D5-0.45NS 1,000 ml @ 125 979.167 mls/hr IV .Q8H [facility] Rx#: [id number] D5-0.45NS 1,000 ml @ 60 1000 mls/hr IV .[id number] [facility] Rx #:[id number] Oral 800 500 Other: # Voids 9 4 # Bowel Movements 0 Stool Characteristics Formed Formed Formed Weight Source Bedscale Bedscale Active Medications: Current Medications Acetaminophen (Tylenol) 650 mg PO Q6H PRN PRN Reason: Pain (Moderate) Stop: 04/29/18 01:08 Last Admin: 03/01/18 11:52 Dose: 650 mg Albuterol Sulfate (Albuterol 2.5mg/3ml Neb Ud) 2.5 mg HHN Q4H PRN PRN Reason: Shortness of Breath or Wheeze Stop: 04/29/18 06:58 Benztropine Mesylate (Cogentin) 1 mg PO BID [facility] Stop: 04/30/18 08:59 Last Admin: 03/01/18 09:02 Dose: 1 mg Budesonide (Pulmicort) 0.5 mg HHN BIDRT [facility] Stop: 04/29/18 18:59 Last Admin: 03/01/18 07:44 Dose: 0.5 mg Carbidopa/Levodopa (Sinemet 25mg-100 Mg) 1 tab PO BID [facility] Stop: 04/29/18 08:59 Last Admin: 03/01/18 09:02 Dose: 1 tab Divalproex Sodium (Depakote Dr) 500 mg PO BID [facility]; Protocol Stop: 04/30/18 08:59 Last Admin: 03/01/18 09:03 Dose: 500 mg Docusate Sodium (Colace) 100 mg PO BID [facility] Stop: 04/29/18 08:59 Last Admin: 03/01/18 09:02 Dose: 100 mg Dextrose/Sodium Chloride (D5-0.45ns) 1,000 mls @ 60 mls/hr IV .[id number] [facility] Stop: 04/29/18 12:14 Last Admin: 03/01/18 02:19 Dose: 60 mls/hr Ipratropium [place] (Atrovent Neb 0.5mg/2.5ml) 0.5 mg HHN QID PRN PRN Reason: Shortness of Breath or Wheeze Propranolol HCl (Inderal) 10 mg PO BID [facility] Stop: 04/30/18 16:59 Simvastatin (Zocor) 20 mg PO HS [facility]; Protocol Stop: 04/29/18 20:59 Last Admin: 02/28/18 21:06 Dose: 20 mg Zolpidem Tartrate (Ambien) 5 mg PO HS PRN PRN Reason: Insomnia Stop: 04/29/18 18:54 Infectious Disease Assmt/Plan - Assessment Assessment: 1. Dizziness, orthostatic vitals are not available. 2. Bipolar disorder. 3. Asthma copd. 4. HTN. 5. Thrombocytopenia. - Plan Plan: Wait for cardio and neurology consult to see the patient. orthostatic vitals. Nutritional Asmnt/Malnutr-PDOC - Dietary Evaluation Malnutrition Findings (Please click <Entered> for more info): Nutritional Asmnt/Malnutrition Start: 02/28/18 16: 08 Text: Status: Complete Freq: Protocol: Document 02/28/18 16:08 TAMMY (Rec: 02/28/18 16:17 TAMMY SAUL-DIET) Nutritional Asmnt/Malnutrition Patient General Information Nutritional Screening High Risk Diagnosis near syncope, dehydration Pertinent Medical Hx/Surgical Hx HTN, asthma, COPD, Parkinson's , depression, bipolar Subjective Information Pt finished 100% of lunch at time of visit. Pt requested for hot cocoa, diet coke, and full salads. Pt states her appetite's good and enjoys her meals. Pt states she recently lost 10# by limiting her carbohydrate intake and meals. Observed pt to be shaking her body/hands during nutrition assessment. Current Diet Order/ Nutrition Support regular Pertinent Medications D5-0.45ns, colace, zocor Pertinent Labs 02/28: glucose 141, Alb 3.3, triglycerides 244 02/27: glucose 106, Alb 3.8, POC 123 Nutritional Hx/Data Height 1.55 m Height (Calculated Centimeters) 154.9 Current Weight (lbs) 87.543 kg Weight (Calculated Kilograms) 87.5 Weight (Calculated Grams) 04951.3 [place] Body Weight 105 lb Body Mass Index (BMI) 36.4 Weight Status Obese GI Symptoms GI Symptoms None Last BM none noted Difficult in: None Usual diet at home Pt states she has been limiting her meals and carbohydrate intake Skin Integrity/Comment: mike altman 20 Estimated Nutritional Goals BEE in Kcals: Adj wt of IBW Calories/Kcals/Kg 25-30 (based on adj wt 57.7 kg ) Kcals Calculated 6253-9573 Protein: Adj wt of IBW Protein g/k.8-1 Protein Calculated 46-58 g Fluid: ml 5214-4961 (1 ml/kcal) Nutritional Problem 1. Problem Problem Altered nutrition related lab value Etiology hyperglycemia Signs/Symptoms: glucose 141 Malnutrition Alert Is there a minimum of two criteria No selected? Query Text:Check all the applicable criteria. A minimum of two criteria are recommended for diagnosis of either severe or non-severe malnutrition. Malnutrition Related to Morbid Obesity Malnutrition related to morbid obesity No Intervention/Recommendation Comments 1. Continue with regular diet as ordered 2. Consider starting CCHO diet if blood glucose continues to stay above normal limits 3. Monitor PO intake, wt, labs and skin integrity 4. F/U as moderate risk in 3-5 days, 03/03-03/05 Expected Outcomes/Goals Expected Outcomes/Goals 1. PO intake to meet at least 75% of all meals 2. Wt stability, skin to remain intact, nutrition related labs to approach normal limits reviewed by Guera Rebolledo RD
--- NOTE | 2018-03-01 13:27 | Consultation ---
DATE OF CONSULTATION: 02/28/2018 HISTORY OF PRESENT ILLNESS: The patient is 52 year old. The patient's neurologic consultation was for passing out. The patient apparently felt lightheaded, some dizziness. She passed out. She also complained of some pain in the pelvic area on urination. The patient here is in bed. Awake, alert. She has not gotten ____ abnormal shaking, very unusual. Predominantly, the patient's shaking is kind of a combination of some resting, though not typical resting. Shaking is somewhat unusual, not typical, Parkinson. She had shaking when she extends her arms out. PAST MEDICAL HISTORY: The patient has history of bipolar depression, hypertension, asthma, COPD, and question of Parkinson and she is on medication for that. SURGERIES: Unknown. ALLERGIES: None known. MEDICATIONS: Per reconciliation. Here, the patient is on Cogentin, Sinemet 25/100 b.i.d., Depakote 750 b.i.d., and simvastatin. REVIEW OF SYSTEMS: The patient has no seizures. Will answer questions. No headache. Unsteadiness, gait difficulty. The patient is oriented to time reviewed. PHYSICAL EXAMINATION: VITAL SIGNS: Temperature 97.9, blood pressure 124/64, and pulse is 68. NECK: Supple. No bruits. HEART: Sounds S1, S2. LUNGS: Clear. NEUROLOGIC: The patient is awake, alert. She actually answers. She gives me her name, her age. She knew what day, what month, what year. Able to name simple objects. CRANIAL: Pupils react to light. Full eye movement, no nystagmus. No facial weakness. MOTOR: She will lift both arms up. Really, I do not see any cogwheel rigidity. She is quite supple. She has a tremor, which is somewhat unusual basically with flexion, extension tremor at the ____ she is rest, since I do not see much and then she will start getting ____, when you take to it or with any kind of goes away, but not typical. Reflex is about 1, difficult to get in the lower extremities. INVESTIGATIONS: CT scan of the head, no acute process. ASSESSMENT: 1. Loss of consciousness, syncope, most likely. CT scan okay. The patient's carotid Doppler pending. Also, check patient for postural hypotension. 2. The patient's abnormal tremor could be secondary due to medication. She is on Sinemet. I will continue with that. I recommend the patient to follow up outpatient with Neurology and may be a trial of primidone later. 3. Chronic obstructive pulmonary disease. 4. Hypertension. 5. Depression, bipolar. 6. Dysuria, urinary tract infection. JOB# [id number]
--- NOTE | 2018-03-01 14:35 | Internal Medicine Prog Note ---
Internal Medicine Subjective - Subjective Service Date: 03/01/18 (patient c/o difficulty swallowing ) Patient seen and examined:: with staff Patient is:: awake, verbal Per staff patient has:: tolerating meds Internal Medicine Objective - Results Result Diagrams: 02/28/18 04:45 02/28/18 04:45 Recent Labs: Laboratory Last Values WBC 4.1 Th/cmm (4.8-10.8) L 02/28/18 04:45 RBC 4.00 Mil/cmm (3.80-5.10) 02/28/18 04:45 Hgb 12.5 gm/dL (12-16) 02/28/18 04:45 Hct 36.1 % (41.0-60) L 02/28/18 04:45 MCV 90.1 fl (81-100) 02/28/18 04:45 MCH 31.3 pg (27.0-31.0) H 02/28/18 04:45 MCHC Differential 34.8 pg (28.0-36.0) 02/28/18 04:45 RDW 13.8 % (11.5-20.0) 02/28/18 04:45 Plt Count 102 Th/cmm (150-400) L 02/28/18 04:45 MPV 7.9 fl 02/28/18 04:45 Neutrophils % 45.2 % (40.0-80.0) 02/28/18 04:45 Lymphocytes % 40.5 % (20.0-50.0) 02/28/18 04:45 Monocytes % 9.0 % (2.0-10.0) 02/28/18 04:45 Eosinophils % 5.0 % (0.0-5.0) 02/28/18 04:45 Basophils % 0.3 % (0.0-2.0) 02/28/18 04:45 Sodium 140 mEq/L (136-145) 02/28/18 04:45 Potassium 3.9 mEq/L (3.5-5.1) 02/28/18 04:45 Chloride 105 mEq/L (98-107) 02/28/18 04:45 Carbon Dioxide 28.4 mEq/L (21.0-31.0) 02/28/18 04:45 Anion Gap 10.5 (7.0-16.0) 02/28/18 04:45 BUN 16 mg/dL (7-25) 02/28/18 04:45 Creatinine 0.7 mg/dL (0.6-1.2) 02/28/18 04:45 Est GFR ( Amer) > 60.0 ml/min (>90) 02/28/18 04:45 Est GFR (Non-Af Amer) > 60.0 ml/min 02/28/18 04:45 BUN/Creatinine Ratio 22.9 02/28/18 04:45 Glucose 141 mg/dL (70-105) H 02/28/18 04:45 POC Glucose 123 MG/DL (70 - 105) H 02/27/18 22:39 Calcium 8.7 mg/dL (8.6-10.3) 02/28/18 04:45 Phosphorus 3.0 mg/dL (2.5-5.0) 02/27/18 15:32 Magnesium 1.9 mg/dL (1.9-2.7) 02/27/18 15:32 Total Bilirubin 0.2 mg/dL (0.3-1.0) L 02/28/18 04:45 AST 15 U/L (13-39) 02/28/18 04:45 ALT 18 U/L (7-52) 02/28/18 04:45 Alkaline Phosphatase 50 U/L (34-104) 02/28/18 04:45 Troponin I 0.01 ng/mL (0.01-0.05) 02/27/18 15:32 Total Protein 5.1 gm/dL (6.0-8.3) L 02/28/18 04:45 Albumin 3.3 gm/dL (3.7-5.3) L 02/28/18 04:45 Globulin 1.8 gm/dL 02/28/18 04:45 Albumin/Globulin Ratio 1.8 (1.0-1.8) 02/28/18 04:45 Triglycerides 244 mg/dL (<150) H 02/28/18 04:45 Cholesterol 157 mg/dL (<200) 02/28/18 04:45 LDL Cholesterol Direct 101 mg/dL (75-193) 02/28/18 04:45 HDL Cholesterol 37 mg/dL (23-92) 02/28/18 04:45 TSH 5.42 uIU/ml (0.34-5.60) 02/27/18 15:32 Urine Source CLEAN C 02/27/18 15:32 Urine Color YELLOW 02/27/18 15:32 Urine Clarity CLEAR (CLEAR) 02/27/18 15:32 Urine pH 7.5 (4.6 - 8.0) 02/27/18 15:32 Ur Specific [place] 1.015 (1.005-1.030) 02/27/18 15:32 Urine Protein NEGATIVE mg/dL (NEGATIVE) 02/27/18 15:32 Urine Glucose (UA) NEGATIVE mg/dL (NEGATIVE) 02/27/18 15:32 Urine Ketones NEGATIVE mg/dL (NEGATIVE) 02/27/18 15:32 Urine Blood TRACE (NEGATIVE) 02/27/18 15:32 Urine Nitrate NEGATIVE (NEGATIVE) 02/27/18 15:32 Urine Bilirubin NEGATIVE (NEGATIVE) 02/27/18 15:32 Urine Urobilinogen 0.2 E.U./dL (0.2 - 1.0) 02/27/18 15:32 Ur Leukocyte Esterase NEGATIVE (NEGATIVE) 02/27/18 15:32 Urine RBC 2-5 /hpf (0-5) 02/27/18 15:32 Urine WBC 0-2 /hpf (0-5) 02/27/18 15:32 Ur Epithelial Cells MODERATE /lpf (FEW) 02/27/18 15:32 Urine Bacteria FEW /hpf (NONE SEEN) 02/27/18 15:32 Urine Test NEGATIVE 02/27/18 15:32 POC Ur Test Negative 02/27/18 15:41 Urine Opiates Screen NEGATIVE (NEGATIVE) 02/27/18 15:32 Urine Methadone Screen NEGATIVE (NEGATIVE) 02/27/18 15:32 Ur Barbiturates Screen NEGATIVE (NEGATIVE) 02/27/18 15:32 Valproic Acid 96.0 ug/mL (50.0-100.0) 02/27/18 15:32 Ur Tricyclics Screen NEGATIVE (NEGATIVE) 02/27/18 15:32 Ur Phencyclidine Scrn NEGATIVE (NEGATIVE) 02/27/18 15:32 Amphetamines Screen NEGATIVE (NEGATIVE) 02/27/18 15:32 U Methamphetamines Scrn NEGATIVE (NEGATIVE) 02/27/18 15:32 U Benzodiazepines Scrn NEGATIVE (NEGATIVE) 02/27/18 15:32 U Cocaine Metab Screen NEGATIVE (NEGATIVE) 02/27/18 15:32 U Cannabinoids Screen NEGATIVE (NEGATIVE) 02/27/18 15:32 - Physical Exam Vitals and I&O: Vital Signs Temp 98.1 F 03/01/18 11:00 Pulse 79 03/01/18 11:00 Resp 18 03/01/18 11:00 BP 113/55 03/01/18 11:00 Pulse Ox 98 03/01/18 11:00 Intake & Output 02/28/18 03/01/18 03/01/18 18:59 06:59 18:59 Intake Total 8920.781 8089 Balance 6271.407 7291 Weight (lbs) 193 lb 221 lb Intake: Intake, IV Amount 825.229 1272 D5-0.45NS 1,000 ml @ 125 979.167 mls/hr IV .Q8H [facility] Rx#: [id number] D5-0.45NS 1,000 ml @ 60 1000 mls/hr IV .[id number] [facility] Rx #:[id number] Oral 800 500 Other: # Voids 9 4 # Bowel Movements 0 Stool Characteristics Formed Formed Formed Weight Source Bedscale Bedscale Active Medications: Current Medications Acetaminophen (Tylenol) 650 mg PO Q6H PRN PRN Reason: Pain (Moderate) Stop: 04/29/18 01:08 Last Admin: 03/01/18 11:52 Dose: 650 mg Albuterol Sulfate (Albuterol 2.5mg/3ml Neb Ud) 2.5 mg HHN Q4H PRN PRN Reason: Shortness of Breath or Wheeze Stop: 04/29/18 06:58 Benztropine Mesylate (Cogentin) 1 mg PO BID [facility] Stop: 04/30/18 08:59 Last Admin: 03/01/18 09:02 Dose: 1 mg Budesonide (Pulmicort) 0.5 mg HHN BIDRT [facility] Stop: 04/29/18 18:59 Last Admin: 03/01/18 07:44 Dose: 0.5 mg Carbidopa/Levodopa (Sinemet 25mg-100 Mg) 1 tab PO BID [facility] Stop: 04/29/18 08:59 Last Admin: 03/01/18 09:02 Dose: 1 tab Divalproex Sodium (Depakote Dr) 500 mg PO BID [facility]; Protocol Stop: 04/30/18 08:59 Last Admin: 03/01/18 09:03 Dose: 500 mg Docusate Sodium (Colace) 100 mg PO BID [facility] Stop: 04/29/18 08:59 Last Admin: 03/01/18 09:02 Dose: 100 mg Dextrose/Sodium Chloride (D5-0.45ns) 1,000 mls @ 60 mls/hr IV .[id number] ED Stop: 04/29/18 12:14 Last Admin: 03/01/18 02:19 Dose: 60 mls/hr Ipratropium [place] (Atrovent Neb 0.5mg/2.5ml) 0.5 mg HHN QID PRN PRN Reason: Shortness of Breath or Wheeze Propranolol HCl (Inderal) 10 mg PO BID [facility] Stop: 04/30/18 16:59 Simvastatin (Zocor) 20 mg PO HS [facility]; Protocol Stop: 04/29/18 20:59 Last Admin: 02/28/18 21:06 Dose: 20 mg Zolpidem Tartrate (Ambien) 5 mg PO HS PRN PRN Reason: Insomnia Stop: 04/29/18 18:54 General: weak, alert HEENT: NC/AT, PERRLA Neck: Supple Lungs: CTAB Cardiovascular: RRR, Normal S1, without murmur Abdomen: soft, non-tender, non-distended Extremities: excoriation Internal Medicine Assmt/Plan - Assessment Assessment: possible uti dizziness bipolar asthma copd htn - Plan Plan: gi consultation fall precautions follow up labs in am dc ivf continue current plan of care Nutritional Asmnt/Malnutr-PDOC - Dietary Evaluation Malnutrition Findings (Please click <Entered> for more info): Nutritional Asmnt/Malnutrition Start: 02/28/18 16: 08 Text: Status: Complete Freq: Protocol: Document 02/28/18 16:08 TAMMY (Rec: 02/28/18 16:17 TAMMY [email or web address]) Nutritional Asmnt/Malnutrition Patient General Information Nutritional Screening High Risk Diagnosis near syncope, dehydration Pertinent Medical Hx/Surgical Hx HTN, asthma, COPD, Parkinson's , depression, bipolar Subjective Information Pt finished 100% of lunch at time of visit. Pt requested for hot cocoa, diet coke, and full salads. Pt states her appetite's good and enjoys her meals. Pt states she recently lost 10# by limiting her carbohydrate intake and meals. Observed pt to be shaking her body/hands during nutrition assessment. Current Diet Order/ Nutrition Support regular Pertinent Medications D5-0.45ns, colace, zocor Pertinent Labs 02/28: glucose 141, Alb 3.3, triglycerides 244 02/27: glucose 106, Alb 3.8, POC 123 Nutritional Hx/Data Height 5 ft 1 in Height (Calculated Centimeters) 154.9 Current Weight (lbs) 193 lb Weight (Calculated Kilograms) 87.5 Weight (Calculated Grams) 06256.3 [place] Body Weight 105 lb Body Mass Index (BMI) 36.4 Weight Status Obese GI Symptoms GI Symptoms None Last BM none noted Difficult in: None Usual diet at home Pt states she has been limiting her meals and carbohydrate intake Skin Integrity/Comment: intact, mike 20 Estimated Nutritional Goals BEE in Kcals: Adj wt of IBW Calories/Kcals/Kg 25-30 (based on adj wt 57.7 kg ) Kcals Calculated 3985-2854 Protein: Adj wt of IBW Protein g/k.8-1 Protein Calculated 46-58 g Fluid: ml 4325-1374 (1 ml/kcal) Nutritional Problem 1. Problem Problem Altered nutrition related lab value Etiology hyperglycemia Signs/Symptoms: glucose 141 Malnutrition Alert Is there a minimum of two criteria No selected? Query Text:Check all the applicable criteria. A minimum of two criteria are recommended for diagnosis of either severe or non-severe malnutrition. Malnutrition Related to Morbid Obesity Malnutrition related to morbid obesity No Intervention/Recommendation Comments 1. Continue with regular diet as ordered 2. Consider starting CCHO diet if blood glucose continues to stay above normal limits 3. Monitor PO intake, wt, labs and skin integrity 4. F/U as moderate risk in 3-5 days, 03/03-03/05 Expected Outcomes/Goals Expected Outcomes/Goals 1. PO intake to meet at least 75% of all meals 2. Wt stability, skin to remain intact, nutrition related labs to approach normal limits reviewed by Guera Rebolledo RD
[2018-03-01] MEDS ORDERED: Influenza Vaccine (65 yr & older) 0.5 ml Syr IM ONE (15:09)
--- NOTE | 2018-03-01 17:36 | Cardiology ---
02/28/[address] Simeon. M-MODE ECHOCARDIOGRAM: Mitral valve, anterior leaflet of mitral valve shows normal excursion, EF velocity. Posterior leaflet of the mitral valve shows normal excursion. Left ventricle posterior wall shows increased thickness, normal excursion. Interventricular septum shows increased thickness, normal excursion, hypertrophy of the left ventricle, ejection fraction 75%, left atrium normal. Aortic root shows normal dimension, normal excursion of aortic leaflets. CONCLUSION: Hypertrophy of the left ventricle, ejection fraction 75%. 2D ECHO: Long axis view showed normal sized left ventricle with hypertrophy of the left ventricle. Left atrium normal. Aortic root shows normal dimension, normal excursion of aortic leaflets. Short axis view of mitral valve normal. Short axis view of aortic valve normal. Apical four chamber view showed normal sized left ventricle, left atrium, right ventricle, right atrium, tricuspid and mitral valve. Ejection fraction 75%. CONCLUSION: Hypertrophy of the left ventricle, ejection fraction 75%. Doppler study shows mild mitral regurgitation, moderate tricuspid regurgitation. Right ventricular systolic pressure of 47 mmHg. [facility]# [id number]
--- NOTE | 2018-03-01 23:18 | Consultation ---
DATE OF CONSULTATION: 03/01/[address] Simeon. HISTORY OF PRESENT ILLNESS: This is a 52-year-old female patient who has bipolar, depression, has been complaining of unsteady gait, dizziness, near syncope. Following this, the patient came to the Emergency Room. No history of PND or orthopnea. PAST MEDICAL HISTORY: Hypertension, asthma, COPD, Parkinson's disease, depression, bipolar, and thrombocytopenia. FAMILY HISTORY: Unremarkable. SOCIAL HISTORY: No history of alcohol abuse. The patient smokes about pack a day. ALLERGIES: None. PHYSICAL EXAMINATION: VITAL SIGNS: Blood pressure 130/80, pulse 70, and respirations 20. HEAD: Normocephalic. No lumps or bumps. EYES: Pupils equal, reactive to light. Fundi show AV nicking, sclerae white, conjunctivae pink. NECK: Carotid 2+. Normal upstroke. JVD flat. Thyroid not palpable. Lymph nodes not palpable. CHEST: Shows increased AP diameter. No kyphosis, scoliosis. LUNGS: Bilateral bronchovesicular breath sounds. HEART: PMI fifth intercostal space with lateral to midclavicular line. S1, S2. No S3, S4, soft systolic murmur. ABDOMEN: Soft. NEUROLOGIC: Parkinson's disease. EXTREMITIES: No pedal edema. CLINICAL IMPRESSION: 1. Syncope. 2. Hypertension. 3. Asthma. 4. Chronic obstructive pulmonary disease. 5. Parkinson's disease. 6. Depression. 7. Bipolar. 8. Thrombocytopenia. PLAN: The patient to have carotid duplex study as well as an echocardiogram. [facility]# [id number]
--- NOTE | 2018-03-02 02:37 | Progress Notes ---
DATE: 03/01/2018 PSYCHIATRIC PROGRESS NOTE SUBJECTIVE: Staff was spoken to. The patient is interviewed. Mood is noted to be irritable. Affect is constricted. Coping skills are noted to be still poor. Insight and judgment are also noted to be limited. The patient has been having difficult time to cope with the stress. The patient's mood swings are noted. The patient has been having tremor in the upper extremities. PLAN: The patient has been advised to be on Klonopin. The patient is stating that she is allergic to Klonopin, and hence, the patient has to be given propranolol 10 mg twice a day and the patient is going to be followed up with supportive therapy. JOB# [id number]
--- NOTE | 2018-03-02 03:18 | Consultation ---
DATE OF CONSULTATION: 03/01/2018 INPATIENT GI CONSULTATION CONSULTING PHYSICIAN: Dr. Simeon. REASON FOR CONSULTATION: Dysphagia. HISTORY OF PRESENT ILLNESS: The patient is a 52-year-old female with a history of bipolar disorder who lives at a board and care facility as well as a possible history of COPD, Parkinson's disease, admitted to the hospital with lightheadedness and possible syncopal episode on 02/28/2018. The patient began complaining yesterday of difficulty with the act of swallowing. She denies that food is getting stuck in her esophagus. She does feel that she chokes sometimes when she is actually swallowing and that this has been going on for 2-3 months. She has had an upper endoscopy before and she thinks this was 5 years ago and does not remember the results. She has also had a colonoscopy at that same time, but does remember that she had colon polyps. She denies any vomiting, hematemesis or melena at the current time. PAST MEDICAL HISTORY: Hypertension, bipolar disease, asthma, COPD, possible Parkinson's disease, although there is some doubt on this. PAST SURGICAL HISTORY: She denies abdominal surgeries. FAMILY HISTORY: Noncontributory. SOCIAL HISTORY: The patient actively smoking. She lives in a board and care facility. She denies other illicit drugs. ALLERGIES: No known drug allergies. REVIEW OF SYSTEMS: A 12-point review of systems was performed with the patient and is negative other than the pertinent positives are mentioned in the history of present illness. CURRENT MEDICATIONS: Include Tylenol, albuterol, Xanax, Cogentin, Pulmicort, Sinemet, Depakote, Colace, Atrovent, propranolol, simvastatin, Ambien. PHYSICAL EXAMINATION: VITAL SIGNS: Blood pressure 132/77, pulse 64 beats per minute, temperature 97.9, oxygenation 99% on room air. GENERAL: The patient is lying in bed on her back. Alert and oriented x 3, no apparent distress. HEENT: Normocephalic, atraumatic appearing head. Pupils equal and reactive to light. Extraocular muscles appear to be intact. Moist mucous membranes. NECK: Supple. There is no obvious JVD or thyromegaly. CHEST: Crackles at both bases. Reduced breath sounds. CARDIOVASCULAR: S1, S2 present. Regular rate and rhythm. ABDOMEN: Obese, soft. No obvious tenderness to palpation. No guarding or rebound. No fluid distention. EXTREMITIES: Nonpitting edema bilaterally. Pulses are not present. SKIN: There is no obvious jaundice. NEUROLOGIC: The patient is shaking both arms in a tremor-like fashion, although it is unclear what type of tumor this may be whether she might be taking this. LABORATORY DATA: These labs are from yesterday. White blood cell count is 4.1, hemoglobin 12.5, platelet count is 102. Sodium 140, BUN 16, creatinine 0.7, total bilirubin 0.2, AST 15, ALT 18. Impression: No abdominal imaging has been performed. IMPRESSION: This is a 52-year-old female with history of bipolar disorder, chronic obstructive pulmonary disease, possible Parkinson's disease, who was admitted to the hospital with a syncopal episode. GI is asked for further evaluation of dysphagia. PROBLEMS: 1. Dysphagia. 2. Parkinson's disease, possibly. 4. Bipolar disorder. 5. Chronic obstructive pulmonary disease. 6. Obesity. DISCUSSION: The patient gives a history that her swallowing has been difficult with the act of swallowing itself. She does not give a history of food getting stuck after she swallows this. She should at first have a swallowing evaluation to evaluate the active swallowing. We can consider an upper endoscopy, although typically, we do not see the muscles involved with the swallowing reflex well with endoscopy and it is more for the evaluation of the esophagus. The patient has a history of possible Parkinson's disease, which certainly could cause issues with swallowing, although it is unclear whether this is actually the case as there is some doubt on the neurologist's consultation. RECOMMENDATIONS: 1. Start with a swallowing evaluation with a speech therapist. Depending on the results of this, we can pursue an upper endoscopy if the patient is still admitted. 2. Continue diet as tolerated for the time being. Thank you for allowing me to participate in this patient's care. Please call with any further questions. JOB# [id number]
[2018-03-02 04:49] LABS: HEMOGLOBIN 12.8 gm/dL (12-16); LYMPHOCYTE ABSOLUTE 1.3 Th/cmm (1.5-3.0); MEAN CORPUSCULAR HEMOGLOBIN 30.9 pg (27.0-31.0); MONOCYTE ABSOLUTE 0.6 Th/cmm (0.3-1.0); RED BLOOD COUNT 4.13 Mil/cmm (3.80-5.10); RED CELL DISTRIBUTION WIDTH 13.2 % (11.5-20.0)
[2018-03-02 05:03] LABS: % BASOPHILS 0.7 % (0.0-2.0); % EOSINOPHILS 9.7 % (0.0-5.0); % MONOCYTES 10.4 % (2.0-10.0); % NEUTROPHILS 56.2 % (40.0-80.0); EOSINOPHILE ABSOLUTE 0.6 Th/cmm (0.1-0.4); HEMATOCRIT 36.4 % (41.0-60); MEAN CELL VOLUME 88.2 fl (81-100); MEAN PLATELET VOLUME 7.4 fl; NEUTROPHILE ABSOLUTE 3.2 Th/cmm (1.8-8.0); PLATELET COUNT 108 Th/cmm (150-400); WHITE BLOOD COUNT 5.7 Th/cmm (4.8-10.8)
[2018-03-02 05:33] LABS: ANION GAP 11.6 (7.0-16.0); BUN - UREA NITROGEN 16 mg/dL (7-25); CARBON DIOXIDE 31.9 mEq/L (21.0-31.0); CHLORIDE 102 mEq/L (98-107); CREATININE - SERUM 0.6 mg/dL (0.6-1.2); GFR AFRICAN-AMERICAN > 60.0 ml/min (>90); GFR NON AFRICAN-AMERICAN > 60.0 ml/min; GLUCOSE 86 mg/dL (70-105); POTASSIUM SERUM 4.5 mEq/L (3.5-5.1); SODIUM SERUM 141 mEq/L (136-145)
[2018-03-02] MEDS: Budesonide 0.5 Mg/2 mL Ud HHN SCH (06:41)
[2018-03-02] MEDS: Benztropine 1 MG TAB PO SCH (08:15)
--- NOTE | 2018-03-02 08:30 | GI Progress Note ---
Subjective - Review of Systems Service Date: 03/02/18 Subjective: No overnight events Objective - Results Result Diagrams: 03/02/18 04:20 03/02/18 04:20 Recent Labs: Laboratory Last Values WBC 5.7 Th/cmm (4.8-10.8) 03/02/18 04:20 RBC 4.13 Mil/cmm (3.80-5.10) 03/02/18 04:20 Hgb 12.8 gm/dL (12-16) 03/02/18 04:20 Hct 36.4 % (41.0-60) L 03/02/18 04:20 MCV 88.2 fl (81-100) 03/02/18 04:20 MCH 30.9 pg (27.0-31.0) 03/02/18 04:20 MCHC Differential 35.0 pg (28.0-36.0) 03/02/18 04:20 RDW 13.2 % (11.5-20.0) 03/02/18 04:20 Plt Count 108 Th/cmm (150-400) L 03/02/18 04:20 MPV 7.4 fl 03/02/18 04:20 Neutrophils % 56.2 % (40.0-80.0) 03/02/18 04:20 Lymphocytes % 23.0 % (20.0-50.0) 03/02/18 04:20 Monocytes % 10.4 % (2.0-10.0) H 03/02/18 04:20 Eosinophils % 9.7 % (0.0-5.0) H 03/02/18 04:20 Basophils % 0.7 % (0.0-2.0) 03/02/18 04:20 Sodium 141 mEq/L (136-145) 03/02/18 04:20 Potassium 4.5 mEq/L (3.5-5.1) 03/02/18 04:20 Chloride 102 mEq/L (98-107) 03/02/18 04:20 Carbon Dioxide 31.9 mEq/L (21.0-31.0) H 03/02/18 04:20 Anion Gap 11.6 (7.0-16.0) 03/02/18 04:20 BUN 16 mg/dL (7-25) 03/02/18 04:20 Creatinine 0.6 mg/dL (0.6-1.2) 03/02/18 04:20 Est GFR ( Amer) > 60.0 ml/min (>90) 03/02/18 04:20 Est GFR (Non-Af Amer) > 60.0 ml/min 03/02/18 04:20 BUN/Creatinine Ratio 26.7 03/02/18 04:20 Glucose 86 mg/dL (70-105) 03/02/18 04:20 POC Glucose 123 MG/DL (70 - 105) H 02/27/18 22:39 Calcium 9.0 mg/dL (8.6-10.3) 03/02/18 04:20 Phosphorus 3.0 mg/dL (2.5-5.0) 02/27/18 15:32 Magnesium 1.9 mg/dL (1.9-2.7) 02/27/18 15:32 Total Bilirubin 0.2 mg/dL (0.3-1.0) L 02/28/18 04:45 AST 15 U/L (13-39) 02/28/18 04:45 ALT 18 U/L (7-52) 02/28/18 04:45 Alkaline Phosphatase 50 U/L (34-104) 02/28/18 04:45 Troponin I 0.01 ng/mL (0.01-0.05) 02/27/18 15:32 Total Protein 5.1 gm/dL (6.0-8.3) L 02/28/18 04:45 Albumin 3.3 gm/dL (3.7-5.3) L 02/28/18 04:45 Globulin 1.8 gm/dL 02/28/18 04:45 Albumin/Globulin Ratio 1.8 (1.0-1.8) 02/28/18 04:45 Triglycerides 244 mg/dL (<150) H 02/28/18 04:45 Cholesterol 157 mg/dL (<200) 02/28/18 04:45 LDL Cholesterol Direct 101 mg/dL (75-193) 02/28/18 04:45 HDL Cholesterol 37 mg/dL (23-92) 02/28/18 04:45 TSH 5.42 uIU/ml (0.34-5.60) 02/27/18 15:32 Urine Source CLEAN C 02/27/18 15:32 Urine Color YELLOW 02/27/18 15:32 Urine Clarity CLEAR (CLEAR) 02/27/18 15:32 Urine pH 7.5 (4.6 - 8.0) 02/27/18 15:32 Ur Specific [place] 1.015 (1.005-1.030) 02/27/18 15:32 Urine Protein NEGATIVE mg/dL (NEGATIVE) 02/27/18 15:32 Urine Glucose (UA) NEGATIVE mg/dL (NEGATIVE) 02/27/18 15:32 Urine Ketones NEGATIVE mg/dL (NEGATIVE) 02/27/18 15:32 Urine Blood TRACE (NEGATIVE) 02/27/18 15:32 Urine Nitrate NEGATIVE (NEGATIVE) 02/27/18 15:32 Urine Bilirubin NEGATIVE (NEGATIVE) 02/27/18 15:32 Urine Urobilinogen 0.2 E.U./dL (0.2 - 1.0) 02/27/18 15:32 Ur Leukocyte Esterase NEGATIVE (NEGATIVE) 02/27/18 15:32 Urine RBC 2-5 /hpf (0-5) 02/27/18 15:32 Urine WBC 0-2 /hpf (0-5) 02/27/18 15:32 Ur Epithelial Cells MODERATE /lpf (FEW) 02/27/18 15:32 Urine Bacteria FEW /hpf (NONE SEEN) 02/27/18 15:32 Urine Test NEGATIVE 02/27/18 15:32 POC Ur Test Negative 02/27/18 15:41 Urine Opiates Screen NEGATIVE (NEGATIVE) 02/27/18 15:32 Urine Methadone Screen NEGATIVE (NEGATIVE) 02/27/18 15:32 Ur Barbiturates Screen NEGATIVE (NEGATIVE) 02/27/18 15:32 Valproic Acid 96.0 ug/mL (50.0-100.0) 02/27/18 15:32 Ur Tricyclics Screen NEGATIVE (NEGATIVE) 02/27/18 15:32 Ur Phencyclidine Scrn NEGATIVE (NEGATIVE) 02/27/18 15:32 Amphetamines Screen NEGATIVE (NEGATIVE) 02/27/18 15:32 U Methamphetamines Scrn NEGATIVE (NEGATIVE) 02/27/18 15:32 U Benzodiazepines Scrn NEGATIVE (NEGATIVE) 02/27/18 15:32 U Cocaine Metab Screen NEGATIVE (NEGATIVE) 02/27/18 15:32 U Cannabinoids Screen NEGATIVE (NEGATIVE) 02/27/18 15:32 - Physical Exam Vitals and I&O: Vital Signs Temp 98 F 03/02/18 07:35 Pulse 76 03/02/18 07:35 Resp 20 03/02/18 07:35 BP 130/77 03/02/18 07:35 Pulse Ox 98 03/02/18 07:35 Intake & Output 03/01/18 03/02/18 03/02/18 18:59 06:59 18:59 Intake Total 1000 1000 Balance 1000 1000 Weight (lbs) 100.244 kg 100.045 kg Intake: Oral 1000 1000 Other: # Voids 6 4 # Bowel Movements 1 0 Stool Characteristics Formed Formed Weight Source Bedscale Bedscale Active Medications: Current Medications Acetaminophen (Tylenol) 650 mg PO Q6H PRN PRN Reason: Pain (Moderate) Stop: 04/29/18 01:08 Last Admin: 03/01/18 23:18 Dose: 650 mg Albuterol Sulfate (Albuterol 2.5mg/3ml Neb Ud) 2.5 mg HHN Q4H PRN PRN Reason: Shortness of Breath or Wheeze Stop: 04/29/18 06:58 Alprazolam (Xanax) 0.25 mg PO Q8HR PRN; Protocol PRN Reason: Anxiety Stop: 04/30/18 14:49 Benztropine Mesylate (Cogentin) 1 mg PO BID [facility]S [facility]CLUDE 234 BEDS AT THE [facility] Stop: 04/30/18 08:59 Last Admin: 03/02/18 08:15 Dose: 1 mg Budesonide (Pulmicort) 0.5 mg HHN BIDRT COUNTS INCLUDE 234 BEDS AT THE [facility] Stop: 04/29/18 18:59 Last Admin: 03/02/18 06:41 Dose: 0.5 mg Carbidopa/Levodopa (Sinemet 25mg-100 Mg) 1 tab PO BID COUNTS INCLUDE 234 BEDS AT THE [facility] Stop: 04/29/18 08:59 Last Admin: 03/02/18 08:14 Dose: 1 tab Divalproex Sodium (Depakote Dr) 500 mg PO BID COUNTS INCLUDE 234 BEDS AT THE [facility]; Protocol Stop: 04/30/18 08:59 Last Admin: 03/02/18 08:15 Dose: 500 mg Docusate Sodium (Colace) 100 mg PO BID COUNTS INCLUDE 234 BEDS AT THE [facility] Stop: 04/29/18 08:59 Last Admin: 03/02/18 08:15 Dose: 100 mg Ipratropium [place] (Atrovent Neb 0.5mg/2.5ml) 0.5 mg HHN QID PRN PRN Reason: Shortness of Breath or Wheeze Propranolol HCl (Inderal) 10 mg PO BID ED Stop: 04/30/18 16:59 Last Admin: 03/01/18 17:32 Dose: Not Given Simvastatin (Zocor) 20 mg PO HS ED; Protocol Stop: 04/29/18 20:59 Last Admin: 03/01/18 20:46 Dose: 20 mg Zolpidem Tartrate (Ambien) 5 mg PO HS PRN PRN Reason: Insomnia Stop: 04/29/18 18:54 Last Admin: 03/01/18 23:18 Dose: 5 mg General: Alert, Oriented x3 HEENT: Atraumatic Neck: Supple Cardiovascular: Regular rate Abdomen: Bowel sounds, Soft, no Tender, no Hepatomegaly, no Splenomegaly, no Distended, no Rebound, no Mass, no Guarding Extremities: no Clubbing Assessment/Plan - Assessment Assessment: # Dysphagia, seems like oral dysphagia # Bipolar disorder # Possible Parkinsons disease # Tremor # COPD Based on symptoms, pt has most trouble with act of swallowing itself. Denies that food is getting stuck. Thus, we have ordered a swallow eval to assess her swallowing reflex. Plan: - swallow eval - consider EGD to assess the esophagus and GE junction. This can also be done as outpt (and is very routinely done this way) - diet as tolerated - neuro and psych follow up
[2018-03-02] MEDS ORDERED: Influenza Vaccine (5 yr & older) 0.5 ml Syr IM ONE (09:00)
--- NOTE | 2018-03-02 10:01 | Infectious Disease Prog Note ---
Infectious Disease Subjective - Review of Systems Service Date: 03/02/18 Subjective: Doing well, no fever. no chest pain. There was no orthostatic hypotension. She ate her breakfast without difficulty. Infectious Disease Objective - Results Result Diagrams: 03/02/18 04:20 03/02/18 04:20 Recent Labs: Laboratory Last Values WBC 5.7 Th/cmm (4.8-10.8) 03/02/18 04:20 RBC 4.13 Mil/cmm (3.80-5.10) 03/02/18 04:20 Hgb 12.8 gm/dL (12-16) 03/02/18 04:20 Hct 36.4 % (41.0-60) L 03/02/18 04:20 MCV 88.2 fl (81-100) 03/02/18 04:20 MCH 30.9 pg (27.0-31.0) 03/02/18 04:20 MCHC Differential 35.0 pg (28.0-36.0) 03/02/18 04:20 RDW 13.2 % (11.5-20.0) 03/02/18 04:20 Plt Count 108 Th/cmm (150-400) L 03/02/18 04:20 MPV 7.4 fl 03/02/18 04:20 Neutrophils % 56.2 % (40.0-80.0) 03/02/18 04:20 Lymphocytes % 23.0 % (20.0-50.0) 03/02/18 04:20 Monocytes % 10.4 % (2.0-10.0) H 03/02/18 04:20 Eosinophils % 9.7 % (0.0-5.0) H 03/02/18 04:20 Basophils % 0.7 % (0.0-2.0) 03/02/18 04:20 Sodium 141 mEq/L (136-145) 03/02/18 04:20 Potassium 4.5 mEq/L (3.5-5.1) 03/02/18 04:20 Chloride 102 mEq/L (98-107) 03/02/18 04:20 Carbon Dioxide 31.9 mEq/L (21.0-31.0) H 03/02/18 04:20 Anion Gap 11.6 (7.0-16.0) 03/02/18 04:20 BUN 16 mg/dL (7-25) 03/02/18 04:20 Creatinine 0.6 mg/dL (0.6-1.2) 03/02/18 04:20 Est GFR ( Amer) > 60.0 ml/min (>90) 03/02/18 04:20 Est GFR (Non-Af Amer) > 60.0 ml/min 03/02/18 04:20 BUN/Creatinine Ratio 26.7 03/02/18 04:20 Glucose 86 mg/dL (70-105) 03/02/18 04:20 POC Glucose 123 MG/DL (70 - 105) H 02/27/18 22:39 Calcium 9.0 mg/dL (8.6-10.3) 03/02/18 04:20 Phosphorus 3.0 mg/dL (2.5-5.0) 02/27/18 15:32 Magnesium 1.9 mg/dL (1.9-2.7) 02/27/18 15:32 Total Bilirubin 0.2 mg/dL (0.3-1.0) L 02/28/18 04:45 AST 15 U/L (13-39) 02/28/18 04:45 ALT 18 U/L (7-52) 02/28/18 04:45 Alkaline Phosphatase 50 U/L (34-104) 02/28/18 04:45 Troponin I 0.01 ng/mL (0.01-0.05) 02/27/18 15:32 Total Protein 5.1 gm/dL (6.0-8.3) L 02/28/18 04:45 Albumin 3.3 gm/dL (3.7-5.3) L 02/28/18 04:45 Globulin 1.8 gm/dL 02/28/18 04:45 Albumin/Globulin Ratio 1.8 (1.0-1.8) 02/28/18 04:45 Triglycerides 244 mg/dL (<150) H 02/28/18 04:45 Cholesterol 157 mg/dL (<200) 02/28/18 04:45 LDL Cholesterol Direct 101 mg/dL (75-193) 02/28/18 04:45 HDL Cholesterol 37 mg/dL (23-92) 02/28/18 04:45 TSH 5.42 uIU/ml (0.34-5.60) 02/27/18 15:32 Urine Source CLEAN C 02/27/18 15:32 Urine Color YELLOW 02/27/18 15:32 Urine Clarity CLEAR (CLEAR) 02/27/18 15:32 Urine pH 7.5 (4.6 - 8.0) 02/27/18 15:32 Ur Specific [place] 1.015 (1.005-1.030) 02/27/18 15:32 Urine Protein NEGATIVE mg/dL (NEGATIVE) 02/27/18 15:32 Urine Glucose (UA) NEGATIVE mg/dL (NEGATIVE) 02/27/18 15:32 Urine Ketones NEGATIVE mg/dL (NEGATIVE) 02/27/18 15:32 Urine Blood TRACE (NEGATIVE) 02/27/18 15:32 Urine Nitrate NEGATIVE (NEGATIVE) 02/27/18 15:32 Urine Bilirubin NEGATIVE (NEGATIVE) 02/27/18 15:32 Urine Urobilinogen 0.2 E.U./dL (0.2 - 1.0) 02/27/18 15:32 Ur Leukocyte Esterase NEGATIVE (NEGATIVE) 02/27/18 15:32 Urine RBC 2-5 /hpf (0-5) 02/27/18 15:32 Urine WBC 0-2 /hpf (0-5) 02/27/18 15:32 Ur Epithelial Cells MODERATE /lpf (FEW) 02/27/18 15:32 Urine Bacteria FEW /hpf (NONE SEEN) 02/27/18 15:32 Urine Test NEGATIVE 02/27/18 15:32 POC Ur Test Negative 02/27/18 15:41 Urine Opiates Screen NEGATIVE (NEGATIVE) 02/27/18 15:32 Urine Methadone Screen NEGATIVE (NEGATIVE) 02/27/18 15:32 Ur Barbiturates Screen NEGATIVE (NEGATIVE) 02/27/18 15:32 Valproic Acid 96.0 ug/mL (50.0-100.0) 02/27/18 15:32 Ur Tricyclics Screen NEGATIVE (NEGATIVE) 02/27/18 15:32 Ur Phencyclidine Scrn NEGATIVE (NEGATIVE) 02/27/18 15:32 Amphetamines Screen NEGATIVE (NEGATIVE) 02/27/18 15:32 U Methamphetamines Scrn NEGATIVE (NEGATIVE) 02/27/18 15:32 U Benzodiazepines Scrn NEGATIVE (NEGATIVE) 02/27/18 15:32 U Cocaine Metab Screen NEGATIVE (NEGATIVE) 02/27/18 15:32 U Cannabinoids Screen NEGATIVE (NEGATIVE) 02/27/18 15:32 - Physical Exam Vitals and I&O: Vital Signs Temp 98 F 03/02/18 07:35 Pulse 76 03/02/18 09:54 Resp 20 03/02/18 07:35 BP 130/77 03/02/18 09:54 Pulse Ox 98 03/02/18 07:35 Intake & Output 03/01/18 03/02/18 03/02/18 18:59 06:59 18:59 Intake Total 1000 1000 Balance 1000 1000 Weight (lbs) 100.244 kg 100.045 kg Intake: Oral 1000 1000 Other: # Voids 6 4 # Bowel Movements 1 0 Stool Characteristics Formed Formed Weight Source Bedscale Bedscale Active Medications: Current Medications Acetaminophen (Tylenol) 650 mg PO Q6H PRN PRN Reason: Pain (Moderate) Stop: 04/29/18 01:08 Last Admin: 03/01/18 23:18 Dose: 650 mg Albuterol Sulfate (Albuterol 2.5mg/3ml Neb Ud) 2.5 mg HHN Q4H PRN PRN Reason: Shortness of Breath or Wheeze Stop: 04/29/18 06:58 Alprazolam (Xanax) 0.25 mg PO Q8HR PRN; Protocol PRN Reason: Anxiety Stop: 04/30/18 14:49 Benztropine Mesylate (Cogentin) 1 mg PO BID [facility] Stop: 04/30/18 08:59 Last Admin: 03/02/18 08:15 Dose: 1 mg Budesonide (Pulmicort) 0.5 mg HHN BIDRT [facility] Stop: 04/29/18 18:59 Last Admin: 03/02/18 06:41 Dose: 0.5 mg Carbidopa/Levodopa (Sinemet 25mg-100 Mg) 1 tab PO BID [facility] Stop: 04/29/18 08:59 Last Admin: 03/02/18 08:14 Dose: 1 tab Divalproex Sodium (Depakote Dr) 500 mg PO BID [facility]; Protocol Stop: 04/30/18 08:59 Last Admin: 03/02/18 08:15 Dose: 500 mg Docusate Sodium (Colace) 100 mg PO BID [facility] Stop: 04/29/18 08:59 Last Admin: 03/02/18 08:15 Dose: 100 mg Ipratropium [place] (Atrovent Neb 0.5mg/2.5ml) 0.5 mg HHN QID PRN PRN Reason: Shortness of Breath or Wheeze Propranolol HCl (Inderal) 10 mg PO BID ED Stop: 04/30/18 16:59 Last Admin: 03/02/18 09:54 Dose: 10 mg Simvastatin (Zocor) 20 mg PO HS [place]; Protocol Stop: 04/29/18 20:59 Last Admin: 03/01/18 20:46 Dose: 20 mg Zolpidem Tartrate (Ambien) 5 mg PO HS PRN PRN Reason: Insomnia Stop: 04/29/18 18:54 Last Admin: 03/01/18 23:18 Dose: 5 mg General: no acute distress, well developed, well nourished HEENT: atraumatic, normocephalic, PERRLA Neck: supple, no thyromegaly Cardiovascular: S1S2, regular Lungs: clear to auscultation bilaterally, clear to percussion Abdomen: soft, no tender, no distended Extremities: no cyanosis, no clubbing, no edema Neurological: awake, alert, oriented Skin: intact Infectious Disease Assmt/Plan - Assessment Assessment: 1. Dizziness, orthostatic vitals are not available. 2. Bipolar disorder. 3. Asthma copd. 4. HTN. 5. Thrombocytopenia. - Plan Plan: Wait for cardio and neurology consult to see the patient. dc patient to SNF if cleared by GI. Nutritional Asmnt/Malnutr-PDOC - Dietary Evaluation Malnutrition Findings (Please click <Entered> for more info): Nutritional Asmnt/Malnutrition Start: 02/28/18 16: 08 Text: Status: Complete Freq: Protocol: Document 02/28/18 16:08 TAMMY (Rec: 02/28/18 16:17 TAMMY [email or web address]) Nutritional Asmnt/Malnutrition Patient General Information Nutritional Screening High Risk Diagnosis near syncope, dehydration Pertinent Medical Hx/Surgical Hx HTN, asthma, COPD, Parkinson's , depression, bipolar Subjective Information Pt finished 100% of lunch at time of visit. Pt requested for hot cocoa, diet coke, and full salads. Pt states her appetite's good and enjoys her meals. Pt states she recently lost 10# by limiting her carbohydrate intake and meals. Observed pt to be shaking her body/hands during nutrition assessment. Current Diet Order/ Nutrition Support regular Pertinent Medications D5-0.45ns, colace, zocor Pertinent Labs 02/28: glucose 141, Alb 3.3, triglycerides 244 02/27: glucose 106, Alb 3.8, POC 123 Nutritional Hx/Data Height 1.55 m Height (Calculated Centimeters) 154.9 Current Weight (lbs) 87.543 kg Weight (Calculated Kilograms) 87.5 Weight (Calculated Grams) 47765.3 [place] Body Weight 105 lb Body Mass Index (BMI) 36.4 Weight Status Obese GI Symptoms GI Symptoms None Last BM none noted Difficult in: None Usual diet at home Pt states she has been limiting her meals and carbohydrate intake Skin Integrity/Comment: mike altman Estimated Nutritional Goals BEE in Kcals: Adj wt of IBW Calories/Kcals/Kg 25-30 (based on adj wt 57.7 kg ) Kcals Calculated 2975-4898 Protein: Adj wt of IBW Protein g/k.8-1 Protein Calculated 46-58 g Fluid: ml 1415-2278 (1 ml/kcal) Nutritional Problem 1. Problem Problem Altered nutrition related lab value Etiology hyperglycemia Signs/Symptoms: glucose 141 Malnutrition Alert Is there a minimum of two criteria No selected? Query Text:Check all the applicable criteria. A minimum of two criteria are recommended for diagnosis of either severe or non-severe malnutrition. Malnutrition Related to Morbid Obesity Malnutrition related to morbid obesity No Intervention/Recommendation Comments 1. Continue with regular diet as ordered 2. Consider starting CCHO diet if blood glucose continues to stay above normal limits 3. Monitor PO intake, wt, labs and skin integrity 4. F/U as moderate risk in 3-5 days, 03/03-03/05 Expected Outcomes/Goals Expected Outcomes/Goals 1. PO intake to meet at least 75% of all meals 2. Wt stability, skin to remain intact, nutrition related labs to approach normal limits reviewed by Guera Rebolledo RD
--- NOTE | 2018-03-02 10:05 | Internal Medicine Prog Note ---
Internal Medicine Subjective - Subjective Patient is:: awake, verbal Patient Complaints of:: sore throat Per staff patient has:: eating well, tolerating meds Internal Medicine Objective - Results Result Diagrams: 03/02/18 04:20 03/02/18 04:20 Recent Labs: Laboratory Last Values WBC 5.7 Th/cmm (4.8-10.8) 03/02/18 04:20 RBC 4.13 Mil/cmm (3.80-5.10) 03/02/18 04:20 Hgb 12.8 gm/dL (12-16) 03/02/18 04:20 Hct 36.4 % (41.0-60) L 03/02/18 04:20 MCV 88.2 fl (81-100) 03/02/18 04:20 MCH 30.9 pg (27.0-31.0) 03/02/18 04:20 MCHC Differential 35.0 pg (28.0-36.0) 03/02/18 04:20 RDW 13.2 % (11.5-20.0) 03/02/18 04:20 Plt Count 108 Th/cmm (150-400) L 03/02/18 04:20 MPV 7.4 fl 03/02/18 04:20 Neutrophils % 56.2 % (40.0-80.0) 03/02/18 04:20 Lymphocytes % 23.0 % (20.0-50.0) 03/02/18 04:20 Monocytes % 10.4 % (2.0-10.0) H 03/02/18 04:20 Eosinophils % 9.7 % (0.0-5.0) H 03/02/18 04:20 Basophils % 0.7 % (0.0-2.0) 03/02/18 04:20 Sodium 141 mEq/L (136-145) 03/02/18 04:20 Potassium 4.5 mEq/L (3.5-5.1) 03/02/18 04:20 Chloride 102 mEq/L (98-107) 03/02/18 04:20 Carbon Dioxide 31.9 mEq/L (21.0-31.0) H 03/02/18 04:20 Anion Gap 11.6 (7.0-16.0) 03/02/18 04:20 BUN 16 mg/dL (7-25) 03/02/18 04:20 Creatinine 0.6 mg/dL (0.6-1.2) 03/02/18 04:20 Est GFR ( Amer) > 60.0 ml/min (>90) 03/02/18 04:20 Est GFR (Non-Af Amer) > 60.0 ml/min 03/02/18 04:20 BUN/Creatinine Ratio 26.7 03/02/18 04:20 Glucose 86 mg/dL (70-105) 03/02/18 04:20 POC Glucose 123 MG/DL (70 - 105) H 02/27/18 22:39 Calcium 9.0 mg/dL (8.6-10.3) 03/02/18 04:20 Phosphorus 3.0 mg/dL (2.5-5.0) 02/27/18 15:32 Magnesium 1.9 mg/dL (1.9-2.7) 02/27/18 15:32 Total Bilirubin 0.2 mg/dL (0.3-1.0) L 02/28/18 04:45 AST 15 U/L (13-39) 02/28/18 04:45 ALT 18 U/L (7-52) 02/28/18 04:45 Alkaline Phosphatase 50 U/L (34-104) 02/28/18 04:45 Troponin I 0.01 ng/mL (0.01-0.05) 02/27/18 15:32 Total Protein 5.1 gm/dL (6.0-8.3) L 02/28/18 04:45 Albumin 3.3 gm/dL (3.7-5.3) L 02/28/18 04:45 Globulin 1.8 gm/dL 02/28/18 04:45 Albumin/Globulin Ratio 1.8 (1.0-1.8) 02/28/18 04:45 Triglycerides 244 mg/dL (<150) H 02/28/18 04:45 Cholesterol 157 mg/dL (<200) 02/28/18 04:45 LDL Cholesterol Direct 101 mg/dL (75-193) 02/28/18 04:45 HDL Cholesterol 37 mg/dL (23-92) 02/28/18 04:45 TSH 5.42 uIU/ml (0.34-5.60) 02/27/18 15:32 Urine Source CLEAN C 02/27/18 15:32 Urine Color YELLOW 02/27/18 15:32 Urine Clarity CLEAR (CLEAR) 02/27/18 15:32 Urine pH 7.5 (4.6 - 8.0) 02/27/18 15:32 Ur Specific [place] 1.015 (1.005-1.030) 02/27/18 15:32 Urine Protein NEGATIVE mg/dL (NEGATIVE) 02/27/18 15:32 Urine Glucose (UA) NEGATIVE mg/dL (NEGATIVE) 02/27/18 15:32 Urine Ketones NEGATIVE mg/dL (NEGATIVE) 02/27/18 15:32 Urine Blood TRACE (NEGATIVE) 02/27/18 15:32 Urine Nitrate NEGATIVE (NEGATIVE) 02/27/18 15:32 Urine Bilirubin NEGATIVE (NEGATIVE) 02/27/18 15:32 Urine Urobilinogen 0.2 E.U./dL (0.2 - 1.0) 02/27/18 15:32 Ur Leukocyte Esterase NEGATIVE (NEGATIVE) 02/27/18 15:32 Urine RBC 2-5 /hpf (0-5) 02/27/18 15:32 Urine WBC 0-2 /hpf (0-5) 02/27/18 15:32 Ur Epithelial Cells MODERATE /lpf (FEW) 02/27/18 15:32 Urine Bacteria FEW /hpf (NONE SEEN) 02/27/18 15:32 Urine Test NEGATIVE 02/27/18 15:32 POC Ur Test Negative 02/27/18 15:41 Urine Opiates Screen NEGATIVE (NEGATIVE) 02/27/18 15:32 Urine Methadone Screen NEGATIVE (NEGATIVE) 02/27/18 15:32 Ur Barbiturates Screen NEGATIVE (NEGATIVE) 02/27/18 15:32 Valproic Acid 96.0 ug/mL (50.0-100.0) 02/27/18 15:32 Ur Tricyclics Screen NEGATIVE (NEGATIVE) 02/27/18 15:32 Ur Phencyclidine Scrn NEGATIVE (NEGATIVE) 02/27/18 15:32 Amphetamines Screen NEGATIVE (NEGATIVE) 02/27/18 15:32 U Methamphetamines Scrn NEGATIVE (NEGATIVE) 02/27/18 15:32 U Benzodiazepines Scrn NEGATIVE (NEGATIVE) 02/27/18 15:32 U Cocaine Metab Screen NEGATIVE (NEGATIVE) 02/27/18 15:32 U Cannabinoids Screen NEGATIVE (NEGATIVE) 02/27/18 15:32 - Physical Exam Vitals and I&O: Vital Signs Temp 98 F 03/02/18 07:35 Pulse 76 03/02/18 09:54 Resp 20 03/02/18 07:35 BP 130/77 03/02/18 09:54 Pulse Ox 98 03/02/18 07:35 Intake & Output 03/01/18 03/02/18 03/02/18 18:59 06:59 18:59 Intake Total 1000 1000 Balance 1000 1000 Weight (lbs) 100.244 kg 100.045 kg Intake: Oral 1000 1000 Other: # Voids 6 4 # Bowel Movements 1 0 Stool Characteristics Formed Formed Weight Source Bedscale Bedscale Active Medications: Current Medications Acetaminophen (Tylenol) 650 mg PO Q6H PRN PRN Reason: Pain (Moderate) Stop: 04/29/18 01:08 Last Admin: 03/01/18 23:18 Dose: 650 mg Albuterol Sulfate (Albuterol 2.5mg/3ml Neb Ud) 2.5 mg HHN Q4H PRN PRN Reason: Shortness of Breath or Wheeze Stop: 04/29/18 06:58 Alprazolam (Xanax) 0.25 mg PO Q8HR PRN; Protocol PRN Reason: Anxiety Stop: 04/30/18 14:49 Benztropine Mesylate (Cogentin) 1 mg PO BID [facility] Stop: 04/30/18 08:59 Last Admin: 03/02/18 08:15 Dose: 1 mg Budesonide (Pulmicort) 0.5 mg HHN BIDRT [facility] Stop: 04/29/18 18:59 Last Admin: 03/02/18 06:41 Dose: 0.5 mg Carbidopa/Levodopa (Sinemet 25mg-100 Mg) 1 tab PO BID [facility] Stop: 04/29/18 08:59 Last Admin: 03/02/18 08:14 Dose: 1 tab Divalproex Sodium (Depakote Dr) 500 mg PO BID [facility]; Protocol Stop: 04/30/18 08:59 Last Admin: 03/02/18 08:15 Dose: 500 mg Docusate Sodium (Colace) 100 mg PO BID [facility] Stop: 04/29/18 08:59 Last Admin: 03/02/18 08:15 Dose: 100 mg Ipratropium [place] (Atrovent Neb 0.5mg/2.5ml) 0.5 mg HHN QID PRN PRN Reason: Shortness of Breath or Wheeze Propranolol HCl (Inderal) 10 mg PO BID ED Stop: 04/30/18 16:59 Last Admin: 03/02/18 09:54 Dose: 10 mg Simvastatin (Zocor) 20 mg PO HS ED; Protocol Stop: 04/29/18 20:59 Last Admin: 03/01/18 20:46 Dose: 20 mg Zolpidem Tartrate (Ambien) 5 mg PO HS PRN PRN Reason: Insomnia Stop: 04/29/18 18:54 Last Admin: 03/01/18 23:18 Dose: 5 mg General: alert HEENT: NC/AT, PERRLA, EOMI, anicteric sclerae Neck: Supple, No JVD, No thyromegaly Lungs: CTAB Cardiovascular: RRR, Normal S1, without murmur Abdomen: soft, non-tender, non-distended Extremities: no edema, no clubbing, no cyanosis Neurological: no change, alert Internal Medicine Assmt/Plan - Assessment Assessment: 1. Dizziness, orthostatic hypotesion resolved. 2. Bipolar disorder. 3. Asthma copd. 4. HTN. 5. Thrombocytopenia. - Plan Plan: Dc patient to SNF if cleared by GI. Nutritional Asmnt/Malnutr-PDOC - Dietary Evaluation Malnutrition Findings (Please click <Entered> for more info): Nutritional Asmnt/Malnutrition Start: 02/28/18 16: 08 Text: Status: Complete Freq: Protocol: Document 02/28/18 16:08 TAMMY (Rec: 02/28/18 16:17 TAMMY [email or web address]) Nutritional Asmnt/Malnutrition Patient General Information Nutritional Screening High Risk Diagnosis near syncope, dehydration Pertinent Medical Hx/Surgical Hx HTN, asthma, COPD, Parkinson's , depression, bipolar Subjective Information Pt finished 100% of lunch at time of visit. Pt requested for hot cocoa, diet coke, and full salads. Pt states her appetite's good and enjoys her meals. Pt states she recently lost 10# by limiting her carbohydrate intake and meals. Observed pt to be shaking her body/hands during nutrition assessment. Current Diet Order/ Nutrition Support regular Pertinent Medications D5-0.45ns, colace, zocor Pertinent Labs 02/28: glucose 141, Alb 3.3, triglycerides 244 02/27: glucose 106, Alb 3.8, POC 123 Nutritional Hx/Data Height 1.55 m Height (Calculated Centimeters) 154.9 Current Weight (lbs) 87.543 kg Weight (Calculated Kilograms) 87.5 Weight (Calculated Grams) 91935.3 [place] Body Weight 105 lb Body Mass Index (BMI) 36.4 Weight Status Obese GI Symptoms GI Symptoms None Last BM none noted Difficult in: None Usual diet at home Pt states she has been limiting her meals and carbohydrate intake Skin Integrity/Comment: mike altman 20 Estimated Nutritional Goals BEE in Kcals: Adj wt of IBW Calories/Kcals/Kg 25-30 (based on adj wt 57.7 kg ) Kcals Calculated 6027-5704 Protein: Adj wt of IBW Protein g/k.8-1 Protein Calculated 46-58 g Fluid: ml 2258-3258 (1 ml/kcal) Nutritional Problem 1. Problem Problem Altered nutrition related lab value Etiology hyperglycemia Signs/Symptoms: glucose 141 Malnutrition Alert Is there a minimum of two criteria No selected? Query Text:Check all the applicable criteria. A minimum of two criteria are recommended for diagnosis of either severe or non-severe malnutrition. Malnutrition Related to Morbid Obesity Malnutrition related to morbid obesity No Intervention/Recommendation Comments 1. Continue with regular diet as ordered 2. Consider starting CCHO diet if blood glucose continues to stay above normal limits 3. Monitor PO intake, wt, labs and skin integrity 4. F/U as moderate risk in 3-5 days, 03/03-03/05 Expected Outcomes/Goals Expected Outcomes/Goals 1. PO intake to meet at least 75% of all meals 2. Wt stability, skin to remain intact, nutrition related labs to approach normal limits reviewed by Guera Rebolledo RD
--- NOTE | 2018-03-02 14:22 | Progress Notes ---
DATE: 03/02/2018 SUBJECTIVE: Staff was spoken to. The patient is interviewed. Mood is noted to be anxious. Affect is constricted. Insight and judgment are noted to be improving. Impulse control seems to be fair. The patient is still having tremor in the hand shaking in the upper extremities. Mood swings are coming under control. The patient is not presenting with any threats to harm self or others. The patient is stating that she does not like the Klonopin. She wants only taking something other than the Klonopin and hence the patient has been prescribed take the propranolol. ASSESSMENT: The patient is still having mood swings. PLAN: To continue the patient with the supportive therapy and followup. JOB# [id number]
[2018-03-02] MEDS ORDERED: Amoxicillin/Clavulanat 875/125 Tab PO SCH (17:00)
--- NOTE | 2018-03-03 20:50 | Discharge Summary ---
DATE OF DISCHARGE: 03/02/2018 CHIEF COMPLAINT: Dysuria, chest pain, left knee pain, lightheadedness and dizziness. HISTORY OF PRESENT ILLNESS AND HOSPITAL COURSE: The patient is a 52-year-old female with a past medical history of hypertension, asthma, COPD, depression, bipolar disorder, presented to ER with dysuria, some chest pain and left knee pain. The patient complained of lightheadedness, which was resolved by the evaluation on 02/28/2018. On initial evaluation, the patient was afebrile and the patient had some orthostatic hypotension. The patient was started on IV fluid. Next day, orthostasis was performed and the patient had no hypotension. The patient developed sore throat, so GI consultation was called. No active intervention offered immediately, so the patient was ultimately discharged to the facility. DISCHARGE DIAGNOSES: 1. Dizziness with orthostatic hypotension, likely dehydration. 2. Thrombocytopenia. 3. Hypertension. 4. Asthma, chronic obstructive pulmonary disease. 5. Depression. 6. Bipolar disorder. DISCHARGE PLAN: The patient was cleared by multiple consultants. The patient was discharged in stable condition to the nursing facility. The patient's other workup as an outpatient basis. She may follow up Orthopedic consultation as an outpatient basis for the left knee effusion. [facility]# [id number]
== END 2018-03-02 13:00 | DRG 690 ==
LOC: ER 14:54 → TELE 18:02 → MSI 03-01 14:19
PROVIDERS: ADMIT Internal Medicine; ATTEND Internal Medicine
DX: N39.0 Urinary tract infection, site not specified (principal); F31.60 Bipolar disorder, current episode mixed, unspecified; Z68.41 Body mass index [BMI] 40.0-44.9, adult; E86.0 Dehydration; G20 Parkinson's disease; J44.9 Chronic obstructive pulmonary disease, unspecified; I10 Essential (primary) hypertension; I95.1 Orthostatic hypotension; R07.9 Chest pain, unspecified; M25.562 Pain in left knee; M19.90 Unspecified osteoarthritis, unspecified site; M25.462 Effusion, left knee; D69.6 Thrombocytopenia, unspecified; I95.9 Hypotension, unspecified; R42 Dizziness and giddiness; R13.10 Dysphagia, unspecified; E66.9 Obesity, unspecified; J02.9 Acute pharyngitis, unspecified
CPT/HCPCS: 36415-UA; 70450-TC; 71045-TC; 73562-TC-LT; 80048-TC; 80053-TC; 80061-TC; 80164-TC; 80307; 81001-TC; 81025-TC; 82948-90; 83735-TC; 84100-TC; 84443-TC; 84484-TC; 85025-TC; 93005; 93880-TC; 94640; 94760; 97530; J2060; X3904; Z7610